=== PATIENT | female | born 1950 | race Caucasian/White ===

== ENCOUNTER 2017-03-23 12:33 | Inpatient (IN) | payer BC, OTHER ==
[~2017-03-23] VITALS: Ht 165.1 cm; Wt 38.0 kg
[~2017-03-23 12:33] MED LIST: ATEN-51 PO; CLON0.5T4 PO; DOXY-220 PO; FER325 PO; FLUT16SP17 NASAL; LANS30CA PO; LINA145C PO; LORA10TA3 PO; Levofloxacin PO; METH750T93 PO; OXYC-281 PO; PRED10TA PO; TRIM300C16 PO; [UNRECOGNIZED DRUG - CODE] TP
--- NOTE | 2017-03-23 14:44 | ERD ---
ER Documentation Chief Complaint Chief Complaint decreased appetite x 7 days HPI The patient is a 66-year-old female, presenting to the ER because of decreased appetite, vomiting, abdominal pain for the last 7 days. She denies fever, chills, neck pain, chest pain, dyspnea. The abdominal pain is diffuse, worse with diarrhea. She denies hematemesis, hematochezia, denies drinking, smokes regularly Medical history: Hypertension, anxiety, epilepsy, anemia, rheumatoid arthritis, allergic rhinitis, GERD, history of vocal cord paralysis Surgical history: Appendectomy, hysterectomy, neck surgery, cholecystectomy ROS All systems reviewed and are negative except as per history of present illness. Medications Home Meds Reported Medications Lidocaine (Lidocaine) 1 Each Adh..patch, 1 EACH TP TID 03/23/17 Methocarbamol* (Methocarbamol*) 750 Mg Tablet, 750 MG PO Q6H Y for MUSCLE SPASMS , TAB 03/23/17 Atenolol* (Atenolol*) 25 Mg Tablet, 25 MG PO BID, #60 TAB 03/23/17 Phenazopyridine Hcl* (Phenazopyridine Hcl*) 200 Mg Tablet, 200 MG PO BID, TAB 03/23/17 Clonazepam* (Clonazepam*) 1 Mg Tablet, 1 MG PO BID Y for ANXIETY, TAB 03/23/17 Discontinued Reported Medications Atenolol* (Atenolol*) 25 Mg Tablet, 25 MG PO BID, TAB 02/16/15 Oxycodone Hcl-Acetaminophen* (Percocet*) 5-325 Mg Tablet, 1 TAB PO DAILY Y for SEVERE PAIN LEVEL 7-10, TAB 02/16/15 Lidocaine Hcl (XOLIDO) 118 Ml Cream.ml., 1 APPLIC TP TID 02/16/15 Clonazepam* (Clonazepam*) 0.5 Mg Tablet, 0.5 MG PO Q8H Y for ANXIETY, TAB 02/16/15 Methocarbamol* (Robaxin*) 750 Mg Tablet, 1500 MG PO BID, TAB 02/16/15 Lansoprazole* (Lansoprazole*) 30 Mg Capsule.dr, 30 MG PO BID, CAP 02/16/15 Trimethobenzamide Hcl* (Tigan*) 300 Mg Capsule, 300 MG PO Q12 Y for NAUSEA, CAP 02/16/15 Discontinued Scripts Linaclotide (LINZESS) 145 Mcg Capsule, 145 MCG PO DAILY for 30 Days Prov:ZACKARY PRECIADO MD 02/23/15 Ferrous Sulfate* (Ferrous Sulfate*) 325 Mg Tabec, 325 MG PO DAILY for 30 Days, TAB Prov:ZACKARY PRECIADO MD 02/23/15 Prednisone (Prednisone) 10 Mg Tab, 10 MG PO DAILY, #5 TAB Prov:ZACKARY PRECIADO MD 02/23/15 Doxycycline Monohydrate* (Doxycycline Monohydrate*) 100 Mg Tablet, 100 MG PO DAILY for 5 Days, TAB Prov:ZACKARY PRECIADO MD 02/23/15 Loratadine* (Loratadine*) 10 Mg Tab, 10 MG PO DAILY, #30 Prov:ZACKARY PRECIADO MD 02/23/15 [Levofloxacin] 500 MG TAB No Conflict Check, 500 MG PO DAILY@06 for 5 Days, TAB Prov:ZACKARY PRECIADO MD 02/23/15 Fluticasone Propionate* (Fluticasone Propionate* Nasal) 1 [place], 1 SPRAY NASAL BID for 30 Days Prov:ZACKARY PRECIADO MD 02/23/15 Allergies Allergies: Coded Allergies: Sulfa (Sulfonamide Antibiotics) (Unverified Allergy, Mild, 03/23/17) RE-ENTERED UNCODED ALLERGY CODED; RASH PER ER NOTES cyclobenzaprine (Verified Allergy, Mild, 03/23/17) diazepam (Verified Allergy, Mild, 03/23/17) phenobarbital (Verified Allergy, Mild, 03/23/17) bethanechol (Verified Adverse Reaction, Intermediate, diarrhea, abd pain, alot of mucus , 03/23/17) Uncoded Allergies: [id number] (SULFA (SULFONAMIDE ANTIBIOTICS)) (Allergy, Mild, 09/17/10) PMhx/Soc History of Surgery: Yes (appendectomy,multiple neck sx,hysterectomy, cholecystectomy) Anesthesia Reaction: No Hx Neurological Disorder: Yes (seizures, last one in 1972) Hx Respiratory Disorders: No Hx Cardiac Disorders: No Hx Psychiatric Problems: No Hx Miscellaneous Medical Probl: Yes (chronic anemia,seizure, htn, gum abcessess , hep B/C?GERD,allergic rhinitis) Hx Alcohol Use: No Hx Substance Use: No Hx Tobacco Use: Yes Physical Exam Vitals Vital Signs Date Time Temp Pulse Resp B/P Pulse Ox O2 Delivery O2 Flow Rate FiO2 03/23/17 18:49 85 17 115/72 99 Nasal Cannula 2.0 03/23/17 16:36 87 18 129/98 97 Nasal Cannula 2.0 03/23/17 15:46 Nasal Cannula 2 03/23/17 15:01 101 19 130/99 96 Room Air 03/23/17 12:38 98.7 102 22 119/80 91 Physical Exam Const: No acute distress. dehydrated Head: Atraumatic. Eyes: Normal Conjunctiva. ENT: Normal External Ears, Nose and Mouth. Neck: Full range of motion. No meningismus. Resp: Clear to auscultation bilaterally. Cardio: Regular rate and rhythm. Abd: Soft, non distended, normal bowel sounds, moderate and diffuse abdominal tenderness, no rigidity, rebound, CVA tenderness Skin: No petechiae or rashes. Back: No midline or flank tenderness. Ext: No cyanosis, or edema. Neur: Awake and alert. No focal deficit Psych: Normal Mood and Affect. Result Diagram: 03/23/17 1540 03/23/17 1540 Results 24 hrs Laboratory Tests Test 03/23/17 15:40 03/23/17 19:06 White Blood Count 33.010^3/ul Red Blood Count 5.3210^6/ul Hemoglobin 14.2g/dl Hematocrit 42.9% Mean Corpuscular Volume 80.6fl Mean Corpuscular Hemoglobin 26.7pg Mean Corpuscular Hemoglobin Concent 33.1g/dl Red Cell Distribution Width 16.5% Platelet Count 33588^3/UL Mean Platelet Volume 11.2fl Neutrophils % % Segmented Neutrophils % (Manual) 86% Band Neutrophils % (Manual) 4% Lymphocytes % % Lymphocytes % (Manual) 1% Monocytes % % Monocytes % (Manual) 9% Eosinophils % % Basophils % % Nucleated Red Blood Cells % 0.0/100WBC Neutrophils # 10^3/ul Neutrophils # (Manual) 28.810^3/ul Band Neutrophils # 1.310^3/ul Absolute Lymphocytes (Manual) 0.310^3/ul Lymphocytes # 10^3/ul Monocytes # 10^3/ul Absolute Monocytes (Manual) 2.910^3/ul Eosinophils # 10^3/ul Basophils # 10^3/ul Nucleated Red Blood Cells # 10^3/ul Pathologist Review (Hematology) YES Platelet Morphology Comment @See below Anisocytosis 1+ Prothrombin Time 15.9Sec Prothrombin Time Ratio 1.2 INR International Normalized Ratio 1.25 Activated Partial Thromboplast Time 41.7Sec Sodium Level 130mmol/L Potassium Level 4.6mmol/L Chloride Level 93mmol/L Carbon Dioxide Level 24mmol/L Anion Gap 18 Blood Urea Nitrogen 69mg/dl Creatinine 2.42mg/dl Glucose Level 126mg/dl Lactic Acid Level 2.0mmol/L Calcium Level 8.4mg/dl Total Bilirubin 0.4mg/dl Direct Bilirubin 0.00mg/dl Indirect Bilirubin 0.4mg/dl Aspartate Amino Transf (AST/SGOT) 88IU/L Alanine Aminotransferase (ALT/SGPT) 71IU/L Alkaline Phosphatase 261IU/L Troponin I < 0.012ng/ml Total Protein 7.2g/dl Albumin 3.0g/dl Globulin 4.20g/dl Albumin/Globulin Ratio 0.71 Bedside Urine pH (LAB) 5.0 Bedside Urine Protein (LAB) 1+ Bedside Urine Glucose (UA) Negative Bedside Urine Ketones (LAB) Negative Bedside Urine Blood Negative Bedside Urine Nitrite (LAB) Negative Bedside Urine Leukocyte Esterase (L Negative Current Medications Medications (Trade) Dose Ordered Sig/Hair Route PRN Reason Start Time Stop Time Status Last Admin Dose Admin Sodium Chloride (NS) 1,200 ml @ 1,200 mls/hr BOLUS X1 ONCE IV 03/23/17 15:30 03/23/17 16:29 DC 03/23/17 15:42 Morphine Sulfate (morphine) 2 mg ONCE STAT IV 03/23/17 16:47 03/23/17 16:49 DC 03/23/17 16:58 Ondansetron HCl 4 mg 4 mg ONCE STAT IV 03/23/17 16:47 03/23/17 16:49 DC 03/23/17 16:58 Vancomycin HCl 250 ml @ 125 mls/hr ONCE IVPB 03/23/17 17:30 03/23/17 19:29 03/23/17 18:40 Piperacillin Sod/ Tazobactam Sod 50 ml @ 100 mls/hr ONCE ONCE IVPB 03/23/17 17:30 03/23/17 17:59 DC 03/23/17 18:18 Sodium Chloride (NS) 1,000 ml @ 100 mls/hr Q10H IV 03/23/17 18:58 IV Flush (NS 3 ml) 3 ml PER PROTOCOL IV 03/23/17 19:00 Lorazepam (Ativan) 0.5 mg Q8H PRN PO ANXIETY 03/23/17 19:00 Ondansetron HCl (Zofran Inj) 4 mg Q6H PRN IV NAUSEA AND/OR VOMITING 03/23/17 19:00 Acetaminophen (Tylenol Tab) 650 mg Q6H PRN PO PAIN LEVEL 1-3 OR FEVER 03/23/17 19:00 Acetaminophen/ Hydrocodone Bitart ([place] (5/325)) 1 tab Q6H PRN PO PAIN LEVEL 4-6 03/23/17 19:00 Docusate Sodium (Colace) 100 mg Q12H PRN PO CONSTIPATION 03/23/17 19:00 Magnesium Hydroxide (Milk Of Mag) 30 ml DAILY PRN PO CONSTIPATION 03/23/17 19:00 Pantoprazole (Protonix Tab) 40 mg DAILY@06 PO 03/24/17 06:00 Heparin Sodium (Porcine) (Heparin (5000 Units/0.5 ml)) 5,000 unit Q12 SC 03/23/17 21:00 Clonazepam (Klonopin) 1 mg BID PRN PO ANXIETY 03/23/17 19:00 Methocarbamol 750 mg 750 mg Q6H PRN PO MUSCLE SPASMS 03/23/17 19:00 Piperacillin Sod/ Tazobactam Sod (Zosyn 3.375gm/ 50 ml (Pmx)) 50 ml @ 100 mls/hr Q8 IV 03/23/17 22:00 Vancomycin HCl (Vanco Iv Per Pharmacy) VANCOMYCIN PER PHARMACY PER PROTOCOL XX 03/23/17 19:30 UNV Procedures/[place] [id number] Radiology Main Line: [phone] DIAGNOSTIC IMAGING REPORT Patient: ROSALIA MILLER : 1950 Age: 66 Sex: F MR #: [id number] DOS: 03/23/17 1506 Ordering MD: HELEN HADLEY MD Location: E/R Room/Bed: PROCEDURE: XR Chest. CLINICAL INDICATION: Shortness of breath TECHNIQUE: Single portable view of the chest was obtained COMPARISON: CR CHEST 02/17/2015 FINDINGS: The trachea is midline. The cardiac silhouette and pulmonary vascularity are within normal limits. There are bilateral chronic lung changes. There is bilateral perihilar scarring. The lungs are clear. The costophrenic angles are sharp. IMPRESSION: 1. Bilateral chronic lung changes and perihilar scarring. No evidence of acute cardiopulmonary disease. RPTAT: AARR Physician John Date Time Electronically viewed and signed by Antoni Hightower Physician on 03/23/2017 15:32 JL/ CC: HELEN HADLEY MD [place] [id number] Radiology Main Line: [phone] DIAGNOSTIC IMAGING REPORT Patient: ROSALIA MILLER : 1950 Age: 66 Sex: F MR #: [id number] DOS: 03/23/17 1647 Ordering MD: HELEN HADLEY MD Location: E/R Room/Bed: PROCEDURE: CT abdomen and pelvis without contrast. CLINICAL INDICATION: Abdominal pain. TECHNIQUE: CT of the abdomen and pelvis was performed without contrast. Coronal and sagittal reformatted images were obtained from the axial source images. Images were reviewed on a high-resolution PACS workstation. The total exam CTDI equals 4.61 mGy and the total exam DLP equals 182.83 mGy-cm. DICOM images are available. One or more of the following dose reduction techniques were used: - Automated exposure control. - Adjustment of the mA and/or kV according to patient size. - Use of iterative reconstruction technique. COMPARISON: Abdominal ultrasound dated 02/17/2015. FINDINGS: Visualized lower thorax: There is advanced centrilobular emphysema, patchy tree in bud opacity, and bronchial wall thickening at the visualized lung bases. There is also patchy consolidation and ground-glass opacity in the visualized inferior right middle lobe. The visualized heart is unremarkable. Hepatobiliary system and spleen: The liver is grossly unremarkable. There is no intra or extrahepatic biliary ductal dilatation. The gallbladder is not clearly identified, and may be surgically absent. The spleen is grossly unremarkable. The pancreas is grossly unremarkable. Adrenal glands and genitourinary system: The adrenal glands are grossly unremarkable. There is a 2.4 cm cyst at the upper pole of the right kidney. There is no nephrolithiasis or hydronephrosis. The urinary bladder is grossly unremarkable. The uterus is not identified, and may be surgically absent. Gastrointestinal system: There is a moderate volume of stool throughout the colon. There is no definitive evidence of bowel obstruction. The appendix is not identified. Peritoneum, vascular, and lymphatics: There is no free intraperitoneal air or free fluid. No definite mesenteric or retroperitoneal adenopathy, with evaluation being limited due to lack of intravenous contrast. There are atherosclerotic changes of the aorta, which is ectatic. Musculoskeletal system and soft tissues: There is severe lumbar dextroscoliosis with associated severe multilevel degenerative enthesopathy. There is lytic change of the right ilium adjacent to the SI joint with surrounding osseous fragments, suggesting the sequela of prior trauma. There are no concerning osseous lesions. There is body wall edema. IMPRESSION: 1. Advanced centrilobular emphysema with bronchitis and patchy bronchiolitis at both lung bases. Patchy consolidation and bronchiolitis in the visualized inferior right middle lobe. Dedicated chest CT can be performed for further evaluation. 2. Benign 2.4 cm right renal cyst. 3. Moderate volume of stool throughout the colon, suggestive of constipation. 4. Body wall edema. 5. Vascular calcifications consistent with atherosclerosis. RPTAT: HLBP .Vince Dalton MD, MD Date Time Electronically viewed and signed by .Vince Dalton MD, MD on 03/23/2017 18:07 .P/ CC: HELEN HADLEY MD EKG: Read by emergency physician Rate/Rhythm: Normal Sinus Rhythm 96 beats/min QRS, ST, T-waves: No ST elevation, no T inversion, ant Qs Impression: Abnormal EKG MEDICAL MAKING DECISION: The patient is a 66-year-old female, presenting with acute severe sepsis, acute pneumonia, mary, dehydration due to vomiting. She was treated with normosaline 30 mL/kg IV, Oropeza catheter, vancomycin IV, Zosyn IV acute severe sepsis, morphine 2 mg IV for pain, Zofran 4 with IV for nausea with good response The differential diagnoses considered include but are not limited to cholelithiasis, cholecystitis, cystitis, pancreatitis, hepatitis, gastritis, peptic ulcer disease, gastric ulcer, appendicitis, diverticulitis, cholangitis, choledocholithiasis, partial small bowel obstruction, copd, pna. Admit MDM: Patient's infectious symptoms have not stabilized and the patient is at risk of rapid decompensation. The patient will be admitted for careful hydration, antibiotic therapy, and infectious source control. Severe Sepsis criteria: Infectious source: pna End organ damage indicated by: Lactate > 2.0 mmol/L Sepsis Management: Time of recognition of severe sepsis/septic shock:5 pm Within 3 hours of recognition: Blood cultures x 2 before broad-spectrum antibiotics: Yes 30 ml/kg NS bolus completed Initial lactate 2 Repeat lactate pending Septic Shock Assessment: Any lactic acid > 4.0 no Persistent hypotension (SBP < 90 or 40 mmHg drop, MAP < 65) despite 30 mL/kg IV fluid bolusno Critical Care: Critical care time 35 minutes excluding billable procedures Emergent fluid management while maintaining close respiratory support. Provision of immediate and broad-spectrum antibiotic therapy. Simultaneous assessment for possible sources in order to direct targeted therapy. Consideration for invasive and chemical support to prevent cardiopulmonary collapse. Departure Diagnosis: Primary Impression: Severe sepsis Additional Impressions: Pneumonia Acute kidney injury Abnormal LFTs Condition: Stable Comments I discussed the findings with the patient. I discussed the patient with her physician at 6:35 pm who was made aware of the lab, the treatment, the patient condition. The patient is admitted to [facility] Disclaimer: Inadvertent spelling and grammatical errors are likely due to EHR/ dictation software use and do not reflect on the overall quality of patient care. Also, please note that the electronic time recorded on this note does not necessarily reflect the actual time of the patient encounter. HELEN HADLEY MD Mar 23, 2017 14:44
[2017-03-23] MEDS ORDERED: SOD CHLORIDE 0.9% 1,200 ML IV ONE (15:30)
--- NOTE | 2017-03-23 15:32 | RADRPT ---
PROCEDURE: XR Chest. CLINICAL INDICATION: Shortness of breath TECHNIQUE: Single portable view of the chest was obtained COMPARISON: CR CHEST 02/17/2015 FINDINGS: The trachea is midline. The cardiac silhouette and pulmonary vascularity are within normal limits. T here are bilateral chronic lung changes. There is bilateral perihilar scarring. The lungs are clear. The costophrenic angles are sharp. IMPRESSION: 1. Bilateral chronic lung changes and perihilar scarring. No evidence of acute cardiopulmonary disea se. RPTAT: AARR Physician John Date Time Electronically viewed and signed by Physician John on 03/23/2017 15:32 COREEN/
[2017-03-23 16:19] LABS: ABNORMAL IP MESSAGE 1; HEMATOCRIT 42.9 % (37.0-47.0); HEMOGLOBIN 14.2 g/dl (12.0-16.0); MEAN CORPUSCULAR HEMOGLOBIN 26.7 pg (29.0-33.0); MEAN CORPUSCULAR HGB CONC 33.1 g/dl (32.0-37.0); MEAN CORPUSCULAR VOLUME 80.6 fl (82.0-101.0); MEAN PLATELET VOLUME 11.2 fl (7.4-10.4); PLATELET COUNT 453 10^3/UL (140-415); RED BLOOD COUNT 5.32 10^6/ul (4.20-5.40); RED CELL DISTRIBUTION WIDTH 16.5 % (11.5-14.5)
[2017-03-23 16:22] LABS: POSITIVE DIFF @See below
[2017-03-23 16:41] LABS: ALANINE AMINOTRANSFERASE 71 IU/L (13-69); ALBUMIN/GLOBULIN RATIO 0.71; ALKALINE PHOSPHATASE 261 IU/L (42-121); ANION GAP 18 (8-16); ASPARTATE AMINO TRANSFERASE 88 IU/L (15-46); BILIRUBIN,INDIRECT 0.4 mg/dl (0-1.1); BILIRUBIN,TOTAL 0.4 mg/dl (0.2-1.3); BLOOD UREA NITROGEN 69 mg/dl (7-20); CALCIUM 8.4 mg/dl (8.4-10.2); CARBON DIOXIDE 24 mmol/L (21-31); CHLORIDE 93 mmol/L (97-110); CREATININE 2.42 mg/dl (0.44-1.00); GLUCOSE 126 mg/dl (70-220); POTASSIUM 4.6 mmol/L (3.5-5.1); SODIUM 130 mmol/L (135-144); TOTAL PROTEIN 7.2 g/dl (6.1-8.1)
[2017-03-23] MEDS ORDERED: morphine 2 MG INJ IV STA (16:47)
[2017-03-23] MEDS ORDERED: ONDANSETRON 4 MG INJ IV STA (16:47)
[2017-03-23 16:49] LABS: INR 1.25; PROTIME 15.9 Sec (11.9-14.9); PT RATIO 1.2
[2017-03-23 16:50] LABS: PARTIAL THROMBOPLASTIN TIME 41.7 Sec (25.0-35.0)
[2017-03-23 16:59] LABS: TROPONIN-I < 0.012 ng/ml (0.00-0.12)
[2017-03-23 17:06] LABS: ANISOCYTOSIS 1+ (0-0); MONOCYTES % (M) 9 % (0-11)
[2017-03-23] MEDS ORDERED: CLON1TAB3 PO (17:11)
[2017-03-23] MEDS ORDERED: ATEN-51 PO (17:12)
[2017-03-23] MEDS ORDERED: PHEN-616 PO (17:12)
[2017-03-23] MEDS ORDERED: METH750T2 PO (17:13)
[2017-03-23] MEDS ORDERED: LIDO700A45 TP (17:15)
[2017-03-23 17:25] LABS: PATH REVIEW? YES
[2017-03-23] MEDS ORDERED: VANCOMYCIN 1 GM (PMX) 250 ML IVPB SCH (17:30)
[2017-03-23] MEDS ORDERED: PIPER-TAZO 2.25 GM (PMX) 50 ML IVPB ONE (17:30)
--- NOTE | 2017-03-23 18:07 | RADRPT ---
PROCEDURE: CT abdomen and pelvis without contrast. CLINICAL INDICATION: Abdominal pain. TECHNIQUE: CT of the abdomen and pelvis was performed without contrast. Coronal and sagittal reform atted images were obtained from the axial source images. Images were reviewed on a high-resolution [employer] workstation. The total exam CTDI equals 4.61 mGy and the total exam DLP equals 182.83 mGy-cm. DI COM images are available. One or more of the following dose reduction techniques were used: - Automated exposure control. - Adjustment of the mA and/or kV according to patient size. - Use of iterative reconstruction technique. COMPARISON: Abdominal ultrasound dated 02/17/2015. FINDINGS: Visualized lower thorax: There is advanced centrilobular emphysema, patchy tree in bud opacity, and bronchial wall thickening at the visualized lung bases. There is also patchy consolidation and grou nd-glass opacity in the visualized inferior right middle lobe. The visualized heart is unremarkable. Hepatobiliary system and spleen: The liver is grossly unremarkable. There is no intra or extrahepat ic biliary ductal dilatation. The gallbladder is not clearly identified, and may be surgically absen t. The spleen is grossly unremarkable. The pancreas is grossly unremarkable. Adrenal glands and genitourinary system: The adrenal glands are grossly unremarkable. There is a 2. 4 cm cyst at the upper pole of the right kidney. There is no nephrolithiasis or hydronephrosis. The urinary bladder is grossly unremarkable. The uterus is not identified, and may be surgically absent. Gastrointestinal system: There is a moderate volume of stool throughout the colon. There is no defi nitive evidence of bowel obstruction. The appendix is not identified. Peritoneum, vascular, and lymphatics: There is no free intraperitoneal air or free fluid. No defini te mesenteric or retroperitoneal adenopathy, with evaluation being limited due to lack of intravenou s contrast. There are atherosclerotic changes of the aorta, which is ectatic. Musculoskeletal system and soft tissues: There is severe lumbar dextroscoliosis with associated sev ere multilevel degenerative enthesopathy. There is lytic change of the right ilium adjacent to the S I joint with surrounding osseous fragments, suggesting the sequela of prior trauma. There are no con cerning osseous lesions. There is body wall edema. IMPRESSION: 1. Advanced centrilobular emphysema with bronchitis and patchy bronchiolitis at both lung bases. Pa tchy consolidation and bronchiolitis in the visualized inferior right middle lobe. Dedicated chest C T can be performed for further evaluation. 2. Benign 2.4 cm right renal cyst. 3. Moderate volume of stool throughout the colon, suggestive of constipation. 4. Body wall edema. 5. Vascular calcifications consistent with atherosclerosis. RPTAT: HLBP .Vince Dalton MD, MD Date Time Electronically viewed and signed by .Vince Dalton MD, on 03/23/2017 18:07 .P/
[2017-03-23] MEDS ORDERED: clonAZEPAM 0.5 MG TAB PO PRN (19:00)
[2017-03-23] MEDS ORDERED: ACETAMINOPHEN 325 MG TAB PO PRN (19:00)
[2017-03-23] MEDS ORDERED: NACL 0.9% 3 ML SYG IV SCH (19:00)
[2017-03-23] MEDS ORDERED: ONDANSETRON 4 MG INJ IV PRN (19:00)
[2017-03-23] MEDS ORDERED: DOCUSATE SODIUM 100 MG CAP PO PRN (19:00)
[2017-03-23] MEDS ORDERED: MAGNESIUM HYDROXIDE 30ML CUP PO PRN (19:00)
[2017-03-23] MEDS ORDERED: METHOCARBAMOL 750 MG TAB PO PRN (19:00)
[2017-03-23 19:07] LABS: URINE BLOOD (Dip) POC Negative (NEGATIVE)
[2017-03-23] MEDS ORDERED: VANCOMYCIN IV PER PHARMACY XX SCH (19:30)
[2017-03-23 19:34] LABS: ADD UMIC NO; UR ASCORBIC ACID NEGATIVE (NEGATIVE); UR BILIRUBIN (Dip) NEGATIVE (NEGATIVE); UR BLOOD (Dip) NEGATIVE (NEGATIVE); UR CLARITY SLIGHTLY CLOUDY (CLEAR); UR COLOR AMBER (YELLOW); UR GLUCOSE (Dip) NEGATIVE (NEGATIVE); UR KETONES (Dip) NEGATIVE (NEGATIVE); UR LEUKOCYTE ESTERASE (Dip) NEGATIVE Leu/ul (NEGATIVE); UR NITRITE (Dip) NEGATIVE (NEGATIVE); UR RBC 2 /HPF (0-5); UR SPECIFIC GRAVITY (Dip) 1.016 (1.003-1.030); UR TOTAL PROTEIN (Dip) NEGATIVE (NEGATIVE); UR UROBILINOGEN (Dip) 2+ mg/dL (NEGATIVE)
[2017-03-23 21:30] VITALS: BP 116/81; RESP 18
[2017-03-23 22:01] VITALS: PULSE 85
[2017-03-23 22:47] VITALS: Ht 165.1 cm; Wt 38.0 kg
[2017-03-23] MEDS: PIPER-TAZO 3.375 GM IV (PMX) 50 ML IV SCH (23:58)
[2017-03-24] VITALS (11 sets, daily range): BP systolic 119–151; BP diastolic 70–87; PULSE 62–84; RESP 16–19
[2017-03-24] MEDS: SOD CHLORIDE 0.9% 1,000 ML IV SCH ×3 (00:01→14:18)
[2017-03-24] MEDS: HYDROCODONE/APAP (5/325) TAB PO PRN ×2 (04:17→04:27)
[2017-03-24] MEDS: PIPER-TAZO 3.375 GM IV (PMX) 50 ML IV SCH (05:55)
[2017-03-24] MEDS: PANTOPRAZOLE (EC) 40 MG TAB PO SCH (05:56)
[2017-03-24] MEDS: HEPARIN 5,000 UNIT/0.5 ML VIAL SC SCH ×3 (08:19→20:55)
[2017-03-24 09:33] LABS: ABNORMAL IP MESSAGE 1; BASOPHIL # 0.1 10^3/ul (0.0-0.1); BASOPHILS % 0.2 % (0.0-2.0); HEMATOCRIT 40.3 % (37.0-47.0); HEMOGLOBIN 12.5 g/dl (12.0-16.0); LYMPHOCYTES # 0.9 10^3/ul (0.8-2.9); LYMPHOCYTES % 3.3 % (15.0-51.0); MEAN CORPUSCULAR HEMOGLOBIN 26.2 pg (29.0-33.0); MEAN CORPUSCULAR VOLUME 84.3 fl (82.0-101.0); MEAN PLATELET VOLUME 11.4 fl (7.4-10.4); MONOCYTE # 1.2 10^3/ul (0.3-0.9); MONOCYTES % 4.6 % (0.0-11.0); NEUTROPHIL # 23.4 10^3/ul (1.6-7.5); NEUTROPHILS % 91.5 % (39.0-77.0); PLATELET COUNT 377 10^3/UL (140-415); RED BLOOD COUNT 4.78 10^6/ul (4.20-5.40); RED CELL DISTRIBUTION WIDTH 16.7 % (11.5-14.5); WHITE BLOOD COUNT 25.6 10^3/ul (4.8-10.8)
[2017-03-24 09:37] LABS: POSITIVE DIFF @See below
[2017-03-24 09:57] LABS: ALANINE AMINOTRANSFERASE 64 IU/L (13-69); ALBUMIN 2.7 g/dl (3.3-4.9); ALBUMIN/GLOBULIN RATIO 0.72; ALKALINE PHOSPHATASE 255 IU/L (42-121); ANION GAP 16 (8-16); ASPARTATE AMINO TRANSFERASE 79 IU/L (15-46); BILIRUBIN,INDIRECT 0.4 mg/dl (0-1.1); BILIRUBIN,TOTAL 0.4 mg/dl (0.2-1.3); BLOOD UREA NITROGEN 58 mg/dl (7-20); CALCIUM 8.3 mg/dl (8.4-10.2); CARBON DIOXIDE 28 mmol/L (21-31); CHLORIDE 98 mmol/L (97-110); CREATININE 2.01 mg/dl (0.44-1.00); GLUCOSE 79 mg/dl (70-220); HDL CHOLESTEROL 12 mg/dl (35-98); MAGNESIUM 2.2 mg/dl (1.7-2.5); POTASSIUM 4.7 mmol/L (3.5-5.1); SODIUM 137 mmol/L (135-144); TOTAL PROTEIN 6.4 g/dl (6.1-8.1); TRIGLYCERIDES 125 mg/dl (0-149)
[2017-03-24 10:08] LABS: CHOLESTEROL < 50 mg/dl (100-200)
[2017-03-24] MEDS: PIPER-TAZO 2.25 GM (PMX) 50 ML IVPB SCH ×3 (12:20→23:54)
--- NOTE | 2017-03-24 18:33 | RADRPT ---
PROCEDURE: US Lower extremity arterial. CLINICAL INDICATION: Bilateral lower extremity cyanosis. Claudication. TECHNIQUE: Multiple sonographic images of the bilateral lower extremity arteries was obtained utili zing grayscale, color-flow, and doppler imaging. The images were reviewed on a PACS workstation. COMPARISON: None. FINDINGS: RIGHT LEG: Common femoral artery: 136.8 cm/s; biphasic waveforms Proximal superficial femoral artery: 159.5 cm/s; biphasic waveforms Mid superficial femoral artery: 142.6 cm/s; monophasic waveforms Distal superficial femoral artery: 119.4 cm/s; monophasic waveforms Popliteal artery: 94.3 cm/s; monophasic waveforms Posterior tibial artery: 78.4 cm/s; monophasic waveforms Dorsalis pedis artery: 81.7 cm/s; monophasic waveforms LEFT LEG: Common femoral artery: 89.9 cm/s; triphasic waveforms Proximal superficial femoral artery: 169.2 cm/s; biphasic waveforms Mid superficial femoral artery: 117.3 cm/s; monophasic waveforms Distal superficial femoral artery: 110.9 cm/s; monophasic waveforms Popliteal artery: 113.6 cm/s; monophasic waveforms Posterior tibial artery: 81.7 cm/s; monophasic waveforms Dorsalis pedis artery: 65.5 cm/s; monophasic waveforms There is dense atherosclerotic plaque in the bilateral common femoral arteries and scattered atheros clerotic disease elsewhere throughout the lower extremities. There is a 4 x 1 x 2.2 cm cyst in the right popliteal fossa. IMPRESSION: 1. Abnormal examination demonstrating dampened waveforms in both lower extremities, consistent with inflow disease. CT angiography with lower extremity runoff can be performed for further evaluation. 2. Calcified atherosclerotic plaque with associated luminal narrowing in the right common femoral a rtery of approximately 57%. 3. No evidence of hemodynamically significant stenosis or occlusion. LEMUEL Value Interpretation Recommendation >1.4 Calcification/Vessel Hardening Refer to a Vascular Specialist 1.0-1.4 Normal None 0.9-1.0 Acceptable None 0.8-0.9 Some Arterial Disease Treat Risk Factors 0.5-0.8 Moderate Arterial Disease Refer to a Vascular Specialist Stenosis category Peak systolic velocity (cm/s) Velocity ratio Distal artery spectral waveform <20% <150 <1.5 Triphasic, normal PSV 20% to 49% 150-200 1.5-2.0 Triphasic, normal PSV 50% to 75% 200-300 2.0-4.0 Monophasic, reduced PSV >75% >300, EDV >40 >4.0 Damped monophasic, reduced PSV Occlusion No flow Damped monophasic, reduced PSV Interpretation of arterial duplex testing of lower-extremity arteries and interventions. Sem[employer]ars in Vascular Surgery. 2013-Dec;26(2-3):95-104. RPTAT: HLBP .Vince Dalton MD, MD Date Time Electronically viewed and signed by .Vince Dalton MD, on 03/24/2017 18:33 .P/
[2017-03-24] MEDS ORDERED: clonAZEPAM 0.5 MG TAB PO PRN (22:00)
--- NOTE | 2017-03-24 22:22 | HP ---
DATE OF ADMISSION: 03/23/2017 REASON FOR ADMISSION: Pneumonia, sepsis, acute renal failure, severe weight loss. HISTORY OF PRESENT ILLNESS: The patient is an unfortunate 66-year-old female with history of anemia, chronic pain, seizure disorder, hypertension, recurrent UTIs, gastroesophageal reflux di sease, allergic rhinitis, C-spine and lumbar spine disease, psychiatric disorder, COPD/emphysema, wh o resides in [place] by herself. The patient states that she has been losing weight for the pa st month or so. In the past 8 days, she has been having increased cough and not feeling well. She was supposed to see her doctor, but patient deferred it. Now presents to the emergency department b ecause of the decreased appetite, vomiting and abdominal pain. In the ER, she underwent extensive w orkup, was found to be septic with a white count of 33,000. BUN and creatinine elevated to 69/2.42, elevated LFTs and a chest x-ray revealed bilateral chronic lung changes and perihilar scarring, no evidence of acute cardiopulmonary disease, but the CAT scan showed advanced centrilobular emphysema with bronchitis and patchy ____ of both lung bases, patchy consolidation and ____ in the visualized inferior right middle lobe. Dedicated CT scan can be performed for further evaluation. There is a benign 2.4 cm right renal cyst, moderate volume of stool throughout the colon, suggestive of constip ation, body wall edema and vascular calcification consistent with atherosclerosis. The patient was started on broad-spectrum antibiotics for presumed pneumonia or bronchitis, and she was hydrated wit h IV fluids and admitted for further care. Upon evaluation, the patient is not eating much, she is very weak, she has difficulty walking now, more in the last few days. She lost a significant amount of weight as BMI was documented as 13.9 with a weight was 38 kilograms. The patient is basically a ll bones, very fragile with severe kyphosis and scoliosis. The patient is admitted for further care . She did report of abdominal pain and problems eating. She attributes it to not taking Prevacid t wice a day. The patient is admitted for further care. PAST MEDICAL HISTORY: Includes chronic anemia, chronic pain syndrome, seizure disorder, hypertensio n, history of gum abscesses, recurrent UTI, questionable viral hepatitis, gastroesophageal reflux di sease, allergic rhinitis, C-spine and L-spine spinal disk disease, history of vocal cord paralysis. SURGICAL HISTORY: Includes appendectomy, multiple neck surgeries, hysterectomy, cholecystectomy. ALLERGIES: SULFA, PHENOBARBITAL, DIAZEPAM, FLEXERIL. SOCIAL HISTORY: The patient was born in [place], moved to [place] in 1975. She is single. She has no kids. She lives by herself at [place]. Overall, she appears to be very disabled and we ak. She denies tobacco. She does smoke a pack a day. She said she has been cutting down. She den ies any illicit drugs. FAMILY HISTORY: Unknown. GI workup, she did have a colonoscopy on 02/22/2015, which showed ulcer in the rectum secondary to f ecal impaction, negative all the way to the cecum. There were hemorrhoids. At that time, she had e levated CEA at 9.4, that was on 02/17/2015. MEDICATIONS: The patient's medications include: 1. Methocarbamol 750 q.6 p.r.n. 2. Atenolol 25 b.i.d. 3. Clonazepam 1 mg b.i.d. p.r.n. 4. Lidocaine patch, it says t.i.d. 5. Phenazopyridine 200 b.i.d. PHYSICAL EXAMINATION: VITAL SIGNS: Temperature 97.2, pulse 75, respirations 19, blood pressure 126/70, saturation 97% on 4 liters. GENERAL: The patient is very weak looking, temporal wasting, pale. CARDIOVASCULAR: Positive S1 and S2, regular rate and rhythm. LUNGS: Decreased bilaterally. The patient with kyphosis, scoliosis, severe. ABDOMEN: Soft. She had an abdominal hernia reducible. Very thin, all bones. EXTREMITIES: There is cyanosis of the bilateral lower extremities, quite significant, with left low er extremity more cold to touch than the right, at the foot. She has onychomycosis to all the toes, and that is suggestive of severe peripheral vascular disease. The patient has deformities of the h ands, suggestive of rheumatoid arthritis as patient was diagnosed with rheumatoid arthritis. The patient is admitted for further care. LABORATORY DATA: White count is 25.6, better, hemoglobin 12.5, hematocrit 40, platelets 277, neutro phils ____, lymphocytes 3%. Chemistry: Sodium 137, potassium 4.7, chloride 98, bicarbonate 28, BUN is 58, creatinine 2.01 and a glucose of 79. Hemoglobin A1c is 5.0. Lactic acid is high at 2.2, T 79, ALT 64, alkaline phosphatase 255, high. Albumin 2.7. Cholesterol less than 50, HDL is 12, ve ry low. TSH is 0.67. The patient ____ cholesterol is all low because likely some severe malnutriti on. Urinalysis, basically nitrites and leukocyte esterase negative. The patient's albumin was 2.7. INR 1.25. Blood cultures so far negative and urine culture is preliminary pending. ASSESSMENT AND PLAN: This is a very unfortunate, very sick 66-year-old female with histor y of emphysema, nicotine dependency, chronic pain syndrome, hypertension, psychiatric disorder, anem ia, peripheral vascular disease, who presents with severe weight loss and was found to be septic, anh hensley from pneumonia. 1. Respiratory: The patient with pneumonia/bronchitis, says she has severe emphysema on CT scan. O2 support and breathing treatment will be provided as needed. We will continue broad-spectrum anti biotics with vancomycin and Zosyn. White count is improving. Follow up lactic acid level. Continu e supportive care. 2. Cardiovascular: EKG shows normal sinus rhythm, anterior infarct, age undetermined. Blood press ure otherwise under control. Vitals are stable. Observe. The patient will be placed on heparin fo r DVT prophylaxis. The patient does have peripheral vascular disease and cold left foot. We will o btain an arterial ultrasound and consult vascular surgery for further recommendations. 3. Infectious disease: The patient is septic with leukocytosis, lactic acidosis. The patient is o n broad-spectrum antibiotics. We will follow up all cultures. 4. Severe malnutrition. I am definitely concerned about malignancy. We will consult GI as the pat ient's symptoms include epigastric pain and some dysphagia. The patient likely will need an EGD. N oted CAT scan results. Follow up cancer markers including CEA. 5. We will consult the dietitian for assistance. We will try to maximize the patient's nutrition s tatus with Ensure. May consider Megace. 6. Rheumatoid arthritis, spinal disk disease, supportive care and pain control as needed. 7. The patient will be placed on PPI for GI prophylaxis, and heparin for DVT prophylaxis. 8. Acute renal failure, likely from decreased p.o. intake with prerenal azotemia. The patient will be hydrated with IV fluids. Monitor for fluid overload state. Check uric acid levels. 9. Elevated alkaline phosphatase. Obtain GGT. 10. Psychiatric disorder. The patient is being supported with clonazepam. Observe. 11. History of rheumatoid arthritis. 12. Physical therapy as tolerated. Overall long-term prognosis is not very good, basically looking at the whole picture and the patient 's significant weight loss, which is all very concerning. We will follow. Dictated By: ZACKARY ANGELA/YOJANA Conf#: [id number] DID#: [id number]
[2017-03-25] VITALS (12 sets, daily range): BP systolic 112–148; BP diastolic 57–81; PULSE 69–82; RESP 16–19
[2017-03-25] MEDS: HYDROmorphONE 2 MG TAB PO PRN (00:16)
[2017-03-25] MEDS: morphine (ER) 15 MG TAB PO SCH ×3 (00:18→20:48)
[2017-03-25] MEDS: SOD CHLORIDE 0.9% 1,000 ML IV SCH ×2 (02:13→11:03)
[2017-03-25] MEDS: PANTOPRAZOLE (EC) 40 MG TAB PO SCH (05:29)
[2017-03-25] MEDS: PIPER-TAZO 2.25 GM (PMX) 50 ML IVPB SCH ×4 (05:30→23:54)
[2017-03-25] MEDS: LORATADINE 10 MG TAB PO SCH (08:26)
[2017-03-25] MEDS: FLUTICASONE 0.05% 16 GM NAS SPRAY NASAL SCH (08:26)
[2017-03-25] MEDS: HEPARIN 5,000 UNIT/0.5 ML VIAL SC SCH ×2 (08:28→20:46)
[2017-03-25] MEDS ORDERED: METHOCARBAMOL 750 MG TAB PO PRN (09:00)
--- NOTE | 2017-03-25 09:18 | CONS ---
Date/Time of Note Date/Time of Note DATE: 03/25/17 TIME: 09:16 Assessment/Plan Assessment/Plan Additional Assessment/Plan 1. Severe constipation 2. Pneumonia bronchitis and bronchiolitis 3. Leukocytosis secondary to pneumonia 4. Cachexia 5. Weight loss 6. Abdominal pain nausea vomiting 7. Chronic neck pain 8. History of GERD Plan Continue antibiotics Continue PPI Add Megace to stimulate the appetite Dulcolax suppository Monitor WBC count and weight closely. We will do EGD once he is more stable CEA and CA 19-9 level Consultation Date/Type/Reason Admit Date/Time Mar 23, 2017 at 18:39 Initial Consult Date 24 HR Interval Summary Free Text/Dictation Complains of constipation Exam/Review of Systems Vital Signs Vitals Vital Signs Date Time Temp Pulse Resp B/P Pulse Ox O2 Delivery O2 Flow Rate FiO2 03/25/17 08:19 69 03/25/17 08:00 98.0 16 148/81 94 03/25/17 04:39 2.0 03/24/17 21:00 Nasal Cannula Intake and Output 03/24/17 03/24/17 03/25/17 15:00 23:00 07:00 Intake Total 50 ml 1150 ml 1400 ml Output Total 1200 ml Balance 50 ml -50 ml 1400 ml Exam Constitutional: alert, oriented, well developed Psych: nl mood/affect, no complaints Head: atraumatic, normocephalic Eyes: EOMI, PERRL, nl conjunctiva, nl lids, nl sclera ENMT: nl external ears & nose, nl lips & teeth, nl nasal mucosa & septum Neck: non-tender, supple Respiratory: clear to auscultation, normal air movement Cardiovascular: nl pulses, regular rate and rhythm Gastrointestinal: nl liver, spleen, non-tender, soft Musculoskeletal: nl extremities to inspection, nl gait and stance Extremities: normal pulses Neurological: 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 II-XII intact, nl mental status, nl speech, nl strength Skin: nl turgor, No rash or lesions Lymph: nl lymph nodes Results Result Diagram: 03/24/1782803/24/17828 Medications Medications Current Medications Sodium Chloride (NS) 1,000 ml @ 100 mls/hr Q10H IV Last administered on t 02:13; Admin Dose 100 MLS/HR; Start 03/23/17 at 18:58 Lorazepam (Ativan) 0.5 mg Q8H PRN PO ANXIETY; Start 03/23/17 at 19:00 Ondansetron HCl (Zofran Inj) 4 mg Q6H PRN IV NAUSEA AND/OR VOMITING; Start 03/28 at 19:00 Acetaminophen (Tylenol Tab) 650 mg Q6H PRN PO PAIN LEVEL 1-3 OR FEVER; Start 03/23/17 at 19:00 Acetaminophen/ Hydrocodone Bitart ([place] (5/325)) 1 tab Q6H PRN PO PAIN LEVEL 4 -6 Last administered on 03/24/17 04:17; Admin Dose 1 TAB; Start 03/23/17 at 19:00 Docusate Sodium (Colace) 100 mg Q12H PRN PO CONSTIPATION Last administered on 03/25/17 08:42; Admin Dose 100 MG; Start 03/23/17 at 19:00 Magnesium Hydroxide (Milk Of Mag) 30 ml DAILY PRN PO CONSTIPATION Last administered on 03/25/17 08:42; Admin Dose 30 ML; Start 03/23/17 at 19:00 Pantoprazole (Protonix Tab) 40 mg DAILY@06 PO Last administered on 03/25/17 05:29; Admin Dose 40 MG; Start 03/24/17 at 06:00 Heparin Sodium (Porcine) (Heparin (5000 Units/0.5 ml)) 5,000 unit Q12 SC Last administered on 03/25/17 08:28; Admin Dose 5,000 UNIT; Start 03/23/17 at 21: 00 Influenza Virus Vaccine 0.5 ml 0.5 ml ONCE ONCE IM* ; Start 03/26/17 at 09:00; Stop 03/26/17 at 09:01 Piperacillin Sod/ Tazobactam Sod 50 ml @ 100 mls/hr Q6 IVPB Last administered on 03/25/17 05:30; Admin Dose 100 MLS/HR; Start 03/24/17 at 12:00 Vancomycin HCl (Vancocin) 100 ml @ 100 mls/hr Q48H IVPB ; Start 03/25/17 at 18 :00 Clonazepam (Klonopin) 1 mg TID PRN PO ANXIETY Last administered on 03/25/17 05:29; Admin Dose 1 MG; Start 03/24/17 at 22:00 Methocarbamol (Robaxin) 750 mg TID PRN PO MUSCLE SPASMS Last administered on 01:58; Admin Dose 750 MG; Start 03/25/17 at 09:00 Hydromorphone HCl (Dilaudid) 2 mg Q4H PRN PO PAIN Last administered on 00:16; Admin Dose 2 MG; Start 03/24/17 at 23:00 Morphine Sulfate (Ms Contin (Er)) 15 mg BID PO Last administered on 03/25/17 08:26; Admin Dose 15 MG; Start 03/24/17 at 22:39 Loratadine (Claritin) 10 mg DAILY PO Last administered on 03/25/17 08:26; Admin Dose 10 MG; Start 03/25/17 at 09:00 Fluticasone Propionate (Flonase 0.05% Nasal) 1 spray DAILY NASAL Last administered on 03/25/17 08:26; Admin Dose 1 SPRAY; Start 03/25/17 at 09:00 KAILEY SETHI MD Mar 25, 2017 09:18
[2017-03-25] MEDS ORDERED: BISACODYL 10 MG SUPP PR STA (09:19)
[2017-03-25 09:28] LABS: CREATININE 1.18 mg/dl (0.44-1.00)
[2017-03-25] MEDS: VANCOMYCIN 500MG/NS (PMX) 100 ML IVPB SCH (11:05)
[2017-03-25 11:45] LABS: BASOPHILS % 0.2 % (0.0-2.0); EOSINOPHILS % 0.1 % (0.0-7.0); HEMATOCRIT 32.8 % (37.0-47.0); HEMOGLOBIN 10.1 g/dl (12.0-16.0); LYMPHOCYTES # 0.7 10^3/ul (0.8-2.9); LYMPHOCYTES % 3.7 % (15.0-51.0); MEAN CORPUSCULAR HEMOGLOBIN 26.2 pg (29.0-33.0); MEAN CORPUSCULAR HGB CONC 30.8 g/dl (32.0-37.0); MEAN PLATELET VOLUME 11.3 fl (7.4-10.4); MONOCYTE # 1.4 10^3/ul (0.3-0.9); MONOCYTES % 7.8 % (0.0-11.0); NEUTROPHIL # 16.1 10^3/ul (1.6-7.5); NEUTROPHILS % 87.7 % (39.0-77.0); PLATELET COUNT 333 10^3/UL (140-415); RED BLOOD COUNT 3.86 10^6/ul (4.20-5.40); RED CELL DISTRIBUTION WIDTH 16.8 % (11.5-14.5); WHITE BLOOD COUNT 18.4 10^3/ul (4.8-10.8)
[2017-03-25 12:11] LABS: CALCIUM 7.7 mg/dl (8.4-10.2); CREATININE 1.14 mg/dl (0.44-1.00); POTASSIUM 3.4 mmol/L (3.5-5.1)
[2017-03-25 12:55] LABS: CARCINOEMBRYONIC ANTIGEN 36.7 ng/ml (0.0-5.0)
[2017-03-25 12:55] LABS: CARCINOEMBRYONIC ANTIGEN 75.6 ng/ml (0.0-5.0)
[2017-03-25 12:59] LABS: CANCER ANTIGEN 19-9 12.7 U/ml (0.0-37.0)
[2017-03-25] MEDS ORDERED: POTASSIUM CHLORIDE (SR) 20 MEQ TAB PO STA (14:15)
--- NOTE | 2017-03-25 16:55 | PN ---
DATE: 03/25/2017 SUBJECTIVE: Patient seen, and I spoke as well with his neighbor/friend who is with her all the time . Again, I am very concerned about the patient. The patient is very cachectic and weak. She weigh s 38 kilograms and all bones. Also, CEA level came back as remarkably high at 36.7 and I am concern ed about possible malignancy. Dr. James is following. PHYSICAL EXAMINATION: VITAL SIGNS: Temperature is 98.3, pulse 80, respirations 16, blood pressure 112/59, saturation 97% on 2 liters. GENERAL: The patient is cachectic, frail, pale. HEENT: Decreased dentition. CARDIOVASCULAR: S1, S2. LUNGS: Decreased bilaterally. ABDOMEN: Soft, nontender. EXTREMITIES: No clubbing, cyanosis, or edema. She has significant cyanosis of the feet and distal legs. MEDICATIONS: 1. Megace 800 daily. 2. Vancomycin IV dose per pharmacy. 3. Robaxin 750 t.i.d. p.r.n. 4. Flonase 1 spray daily. 5. Dilaudid 2 mg p.o. q.4h p.r.n. 6. MS-Contin ER 15 b.i.d. 7. Klonopin 1 mg t.i.d. p.r.n. 8. DuoNeb p.r.n. 9. Zosyn 3.375 IV q.6 h. 10. Protonix 40 mg daily. 11. Heparin 5000 subcu q.12 12. Ativan p.r.n. 13. Zofran p.r.n. 14. Tylenol p.r.n. 15. [place] p.r.n. 16. Colace p.r.n. 17. Milk of magnesia p.r.n. 18. Normal saline at 100 mL an hour. LABORATORY DATA: Urine culture did show strep beta hemolytic group F, greater than 100,000. IMAGING: Arterial ultrasound shows abnormal examination, demonstrating dampened waveform in both lo wer extremities consistent with inflow disease. CT angiography with lower extremity runoff can be p erformed for further evaluation. There is a calcified atherosclerotic plaque with associated lumina l narrowing in the right common femoral artery of approximately 57%. No evidence of hemodynamically significant stenosis or occlusion. ASSESSMENT AND PLAN: This is a very unfortunate 66-year-old female with history of severe emphysema, nicotine dependency, chronic pain syndrome, hypertension, psychiatric disorder, anemia, peripheral vascular disease, presented with severe weight loss, was found to be septic, urinary trac t infection, possible pneumonia. 1. Respiratory: Continue treatment for pneumonia or bronchitis. The patient has severe emphysema, breathing treatment and O2 support is being provided. Remains on Zosyn and vancomycin. White coun t is improving. 2. Cardiovascular. Vitals remain stable. Continue heparin for deep venous thrombosis prophylaxis. The patient with peripheral vascular disease, not a candidate for any intervention secondary to un derlying other medical issues and weight loss. 3. Infectious disease. The patient with urinary tract infection and possible bronchitis. Continue above antibiotics. Positive strep in the urine. Continue Zosyn. 4. Severe malnutrition, now on Megace. 5. Possible dysphagia, possibly related to possible esophageal pathology versus gastrointestinal ma lignancy versus other. CEA is very high. Further recommendations per Dr. James, but overall the p atient's prognosis is not very good. 6. Acute renal failure, resolving with IV hydration. 7. Elevated alkaline phosphatase. 8. Psychiatric disorder. Continue clonazepam routine per patient request. 9. Rheumatoid arthritis. Continue supportive care. Physical therapy as tolerated. 10. Overall try to keep the patient comfortable as patient is on multiple pain medications. Sterling sewell follow. Dictated By: ZACKARY ANGELA/YOJANA Conf#: [id number] DID#: [id number]
--- NOTE | 2017-03-25 16:55 | CONS ---
DATE OF ADMISSION: 03/23/2017 DATE OF CONSULTATION: 03/24/2017 REASON FOR CONSULTATION: Abdominal pain, weight loss, nausea, vomiting. HISTORY OF PRESENT ILLNESS: The patient is a 66-year-old female with chronic neck pain, GERD, has b een steadily losing weight. The patient is also a heavy smoker. She came to the emergency room com plaining of cough and profound weakness. In the ER, the patient was evaluated, had a leukocytosis. CAT scan of the abdomen and pelvis done and it showed bronchitis, bronchiolitis, so patient was adm itted for further management. As per the patient, since she did not get approval of Prevacid by the insurance company, her appetite has gone down and has been losing weight. No GI bleeding. 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 Patient never came to the office for followup. PAST MEDICAL HISTORY: Chronic anemia, chronic pain syndrome, seizure disorder, hypertension, gum ab scess, UTI, GERD, arthritis of the C-spine and vocal cord paralysis. PAST SURGICAL HISTORY: Appendectomy, multiple neck surgeries, hysterectomy and cholecystectomy. ALLERGIES: SULFA, PHENOBARBITAL, DIAZEPAM AND FLEXERIL. SOCIAL HISTORY: The patient denies smoking. No alcohol. No recreational drugs. FAMILY HISTORY: Unknown. REVIEW OF SYSTEMS: She had colonoscopy done on 02/22/2015 which showed a fecal impaction, otherwise it was negative. She had a hemorrhoid. Her CEA was then 9.4. HOME MEDICATIONS: 1. Methocarbamol. 2. Atenolol. 3. Clonazepam. 4. Lidocaine patch. 5. Phenazopyridine. PHYSICAL EXAMINATION GENERAL: Definitely lost significant weight, only subcutaneous muscle was seen. No fat. The patie nt is using accessory muscles to breathe. LUNGS: Air entry diminished at both bases. ABDOMEN: Benign. EXTREMITIES: No edema. Peripheral pulses over the dorsalis pedis appears to be diminished. LABORATORY DATA: WBC is 33, hematocrit is 42. BUN was 58, creatinine is 2, alkaline phosphatase wa s 255. HDL level was very low at 12. IMPRESSION: 1. Bronchitis, and bronchiolitis with possible pneumonia. 2. Leukocytosis 3. Dehydration. 4. Weight loss. 5. Abdominal pain and nausea, vomiting. 6. Cachexia. 7. Emphysema. 8. Chronic neck pain. 9. Psychiatric disorder. PLAN: At this point, is to continue Prevacid, hydration and IV antibiotics. Then once she is more stable, will do EGD. Patient also will be placed on Megace to stimulate appetite and we will monito r WBC count closely. This consult was done yesterday, 03/24/2017. Dictated By: KAILEY LOPEZ/YOJANA Conf#: [id number] DID#: [id number]
[2017-03-25] MEDS: LANSOPRAZOLE 30 MG CAP PO SCH (17:21)
[2017-03-25] MEDS: HYDROCODONE/APAP (5/325) TAB PO PRN (17:21)
[2017-03-25] MEDS ORDERED: VANCOMYCIN 500MG/NS (PMX) 100 ML IVPB SCH (18:00)
[2017-03-25] MEDS: METHOCARBAMOL 750 MG TAB PO SCH (20:46)
[2017-03-25] MEDS: clonAZEPAM 0.5 MG TAB PO SCH (20:47)
[2017-03-26] VITALS (11 sets, daily range): BP systolic 100–145; BP diastolic 70–80; PULSE 78–101; RESP 19–20
[2017-03-26] MEDS: HYDROmorphONE 2 MG TAB PO PRN (01:16)
[2017-03-26] MEDS: SOD CHLORIDE 0.9% 1,000 ML IV SCH ×2 (01:26→05:19)
[2017-03-26] MEDS: LANSOPRAZOLE 30 MG CAP PO SCH ×2 (05:19→17:38)
[2017-03-26] MEDS: LORAZEPAM 0.5 MG TAB PO PRN (05:19)
[2017-03-26] MEDS: PIPER-TAZO 2.25 GM (PMX) 50 ML IVPB SCH ×4 (05:19→23:59)
[2017-03-26 08:54] LABS: BASOPHILS % 0.2 % (0.0-2.0); EOSINOPHILS % 0.2 % (0.0-7.0); HEMATOCRIT 35.3 % (37.0-47.0); HEMOGLOBIN 10.7 g/dl (12.0-16.0); LYMPHOCYTES # 0.6 10^3/ul (0.8-2.9); LYMPHOCYTES % 4.7 % (15.0-51.0); MEAN CORPUSCULAR HEMOGLOBIN 26.1 pg (29.0-33.0); MEAN CORPUSCULAR HGB CONC 30.3 g/dl (32.0-37.0); MEAN CORPUSCULAR VOLUME 86.1 fl (82.0-101.0); MEAN PLATELET VOLUME 10.4 fl (7.4-10.4); MONOCYTE # 1.1 10^3/ul (0.3-0.9); MONOCYTES % 8.4 % (0.0-11.0); NEUTROPHIL # 11.3 10^3/ul (1.6-7.5); PLATELET COUNT 346 10^3/UL (140-415); WHITE BLOOD COUNT 13.3 10^3/ul (4.8-10.8)
[2017-03-26] MEDS ORDERED: INFLUENZA VIRUS VACCINE 0.5 ML (DISPENSING) IM* ONE (09:00)
[2017-03-26] MEDS: FLUTICASONE 0.05% 16 GM NAS SPRAY NASAL SCH (09:06)
[2017-03-26] MEDS: MEGESTROL (40 MG/ML) 10ML CUP PO SCH (09:16)
[2017-03-26] MEDS: clonAZEPAM 0.5 MG TAB PO SCH ×4 (09:17→20:57)
[2017-03-26] MEDS: METHOCARBAMOL 750 MG TAB PO SCH ×2 (09:17→20:57)
[2017-03-26] MEDS: LORATADINE 10 MG TAB PO SCH (09:17)
[2017-03-26] MEDS: morphine (ER) 15 MG TAB PO SCH ×2 (09:17→20:57)
[2017-03-26] MEDS: HEPARIN 5,000 UNIT/0.5 ML VIAL SC SCH ×2 (09:19→20:58)
[2017-03-26 09:31] LABS: ALBUMIN 2.1 g/dl (3.3-4.9); ALBUMIN/GLOBULIN RATIO 0.67; BILIRUBIN,INDIRECT 0.1 mg/dl (0-1.1); BILIRUBIN,TOTAL 0.1 mg/dl (0.2-1.3); CALCIUM 7.8 mg/dl (8.4-10.2); CREATININE 0.98 mg/dl (0.44-1.00); TOTAL PROTEIN 5.2 g/dl (6.1-8.1)
[2017-03-26 09:39] LABS: MAGNESIUM 2.1 mg/dl (1.7-2.5); PHOSPHORUS 2.5 mg/dl (2.5-4.9)
[2017-03-26] MEDS: SILVER SULFADIAZINE 1% 25 GM CR TOP SCH (11:19)
[2017-03-26] MEDS: VANCOMYCIN 500MG/NS (PMX) 100 ML IVPB SCH (11:19)
[2017-03-26] MEDS: DEXTROSE 5%-0.45% NACL 1,000 ML IV SCH (15:33)
--- NOTE | 2017-03-26 15:39 | CONS ---
Date/Time of Note Date/Time of Note DATE: 03/26/17 TIME: 15:38 Assessment/Plan Assessment/Plan Additional Assessment/Plan IMPRESSION: 1. Bronchitis, and bronchiolitis with possible pneumonia. 2. Leukocytosis 3. Dehydration. 4. Weight loss. 5. Abdominal pain and nausea, vomiting. 6. Cachexia. 7. Emphysema. 8. Chronic neck pain. 9. Psychiatric disorder. 10. CEAs height 36.5 Plan Continue PPI Continue Megace Nutritional support either Ensure or Glucerna 1 can 3 times daily. Once he is more stable will proceed with the GI workup Consultation Date/Type/Reason Admit Date/Time Mar 23, 2017 at 18:39 24 HR Interval Summary Free Text/Dictation Patient's p.o. intake is extremely poor. Breathing is much better Exam/Review of Systems Vital Signs Vitals Vital Signs Date Time Temp Pulse Resp B/P Pulse Ox O2 Delivery O2 Flow Rate FiO2 03/26/17 12:14 94 03/26/17 11:27 98.7 20 121/70 96 03/25/17 20:32 2.0 03/25/17 20:00 Nasal Cannula Intake and Output 03/25/17 03/25/17 03/26/17 15:00 23:00 07:00 Intake Total 100 ml 1500 ml 400 ml Output Total 700 ml 1400 ml Balance 100 ml 800 ml -1000 ml Exam Constitutional: alert, oriented, well developed Psych: nl mood/affect, no complaints Head: atraumatic, normocephalic Eyes: EOMI, PERRL, nl conjunctiva, nl lids, nl sclera ENMT: nl external ears & nose, nl lips & teeth, nl nasal mucosa & septum Neck: non-tender, supple Respiratory: clear to auscultation, normal air movement Cardiovascular: nl pulses, regular rate and rhythm Gastrointestinal: nl liver, spleen, non-tender, soft Musculoskeletal: nl extremities to inspection, nl gait and stance Extremities: normal pulses Neurological: 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2 Nucleated Red Blood Cells % 0.0 Neutrophils # 11.3 H Lymphocytes # 0.6 L Monocytes # 1.1 H Eosinophils # 0.0 Basophils # 0.0 Nucleated Red Blood Cells # 0.0 Sodium Level 146 H Potassium Level 4.0 Chloride Level 113 H Carbon Dioxide Level 27 Anion Gap 10 Blood Urea Nitrogen 21 #H Creatinine 0.98 Glucose Level 69 L Calcium Level 7.8 L Phosphorus Level 2.5 Magnesium Level 2.1 Total Bilirubin 0.1 L Direct Bilirubin 0.00 Indirect Bilirubin 0.1 Aspartate Amino Transf (AST/SGOT) 59 H Alanine Aminotransferase (ALT/SGPT) 45 Alkaline Phosphatase 242 H Total Protein 5.2 #L Albumin 2.1 L Globulin 3.10 Albumin/Globulin Ratio 0.67 Medications Medications Current Medications Lorazepam (Ativan) 0.5 mg Q8H PRN PO ANXIETY Last administered on 03/26/17 05 :19; Admin Dose 0.5 MG; Start 03/23/17 at 19:00 Ondansetron HCl (Zofran Inj) 4 mg Q6H PRN IV NAUSEA AND/OR VOMITING; Start 03/28 at 19:00 Acetaminophen (Tylenol Tab) 650 mg Q6H PRN PO PAIN LEVEL 1-3 OR FEVER; Start 03/23/17 at 19:00 Acetaminophen/ Hydrocodone Bitart ([place] (5/325)) 1 tab Q6H PRN PO PAIN LEVEL 4 -6 Last administered on 03/25/17 17:21; Admin Dose 1 TAB; Start 03/23/17 at 19:00 Docusate Sodium (Colace) 100 mg Q12H PRN PO CONSTIPATION Last administered on 03/25/17 08:42; Admin Dose 100 MG; Start 03/23/17 at 19:00 Magnesium Hydroxide (Milk Of Mag) 30 ml DAILY PRN PO CONSTIPATION Last administered on 03/25/17 08:42; Admin Dose 30 ML; Start 03/23/17 at 19:00 Heparin Sodium (Porcine) 5000 unit 5,000 unit Q12 SC Last administered on 03/26 09:19; Admin Dose 5,000 UNIT; Start 03/23/17 at 21:00 Piperacillin Sod/ Tazobactam Sod (Zosyn 2.25gm/ 50ml (Pmx)) 50 ml @ 100 mls/hr Q6 IVPB Last administered on 03/26/17 11:19; Admin Dose 100 MLS/HR; Start at 12:00 Hydromorphone HCl (Dilaudid) 2 mg Q4H PRN PO PAIN Last administered on 01:16; Admin Dose 2 MG; Start 03/24/17 at 23:00 Morphine Sulfate (Ms Contin (Er)) 15 mg BID PO Last administered on 03/26/17 09:17; Admin Dose 15 MG; Start 03/24/17 at 22:39 Loratadine (Claritin) 10 mg DAILY PO Last administered on 03/26/17 09:17; Admin Dose 10 MG; Start 03/25/17 at 09:00 Fluticasone Propionate (Flonase 0.05% Nasal) 1 spray DAILY NASAL Last administered on 03/26/17 09:06; Admin Dose 1 SPRAY; Start 03/25/17 at 09:00 Megestrol Acetate 800 mg 800 mg DAILY PO Last administered on 03/26/17 09:16 ; Admin Dose 800 MG; Start 03/26/17 at 09:00 Vancomycin HCl (Vancocin) 100 ml @ 100 mls/hr Q24H IVPB Last administered on 03/26/17 11:19; Admin Dose 100 MLS/HR; Start 03/25/17 at 11:30 Methocarbamol (Robaxin) 750 mg BID PO Last administered on 03/26/17 09:17; Admin Dose 750 MG; Start 03/25/17 at 21:00 Lansoprazole (Prevacid) 30 mg BID@06,18 PO Last administered on 03/26/17 05: 19; Admin Dose 30 MG; Start 03/25/17 at 18:00 Silver Sulfadiazine (Thermazene 1% 25 Gm) 1 applic DAILY TOP Last administered on 03/26/17 11:19; Admin Dose 1 APPLIC; Start 03/26/17 at 09:00 Miscellaneous Information VANCOMYCIN TROUGH ON 03/12... ONCE ONCE XX ; Start at 10:30; Stop 03/27/17 at 10:31 Dextrose/Sodium Chloride (D5-1/2ns) 1,000 ml @ 60 mls/hr [id number] IV Last administered on 03/26/17 15:33; Admin Dose 60 MLS/HR; Start 03/26/17 at 14:30 Clonazepam (Klonopin) 0.5 mg TID PO Last administered on 03/26/17 15:32; Admin Dose 0.5 MG; Start 03/26/17 at 15:00 KAILEY SETHI MD Mar 26, 2017 15:39
[2017-03-27] VITALS (12 sets, daily range): BP systolic 108–179; BP diastolic 72–102; PULSE 98–114; RESP 18–20
[2017-03-27] MEDS: HYDROmorphONE 2 MG TAB PO PRN (02:40)
[2017-03-27] MEDS: LANSOPRAZOLE 30 MG CAP PO SCH ×2 (05:39→17:46)
[2017-03-27] MEDS: PIPER-TAZO 2.25 GM (PMX) 50 ML IVPB SCH ×3 (05:39→17:46)
[2017-03-27] MEDS: DEXTROSE 5%-0.45% NACL 1,000 ML IV SCH ×2 (06:53→13:12)
--- NOTE | 2017-03-27 08:44 | PN ---
DATE: 03/26/2017 SUBJECTIVE: The patient seen and looks better, but unfortunately she continues not to eat much. Th e patient's close friend is at bedside; she says she will try to encourage her to eat more. The pat harsh's infection is under control as the white count is much better today at 13 with initially white count of 33 upon presentation. Kidney function is improving as well. Unfortunately, we are defini tely concerned about some type of malignancy. The patient's CEA is high as the patient is profoundl y malnourished with a BMI of 13.9. PHYSICAL EXAMINATION: VITAL SIGNS: Temperature 98.7, pulse 94, respiration 20, blood pressure ____, saturation is 96%. GENERAL: The patient is in no acute distress. The patient is frail, pale, temporal wasting. CARDIOVASCULAR: S1, S2 ____. LUNGS: Decreased bilaterally. ABDOMEN: Soft, nontender. EXTREMITIES: No clubbing, ____ or edema. Some cyanosis of the bilateral feet, actually better with hydration. LABORATORY DATA: White count 13.3, hemoglobin 10.7, hematocrit 35, platelet count 346, neutrophils ____, lymphocytes ____%. Sodium 146, potassium 4.0, chloride 113, bicarbonate ____, BUN is 21, crea tinine 0.98, glucose of 69, AST 59, ALT 45, alkaline phosphatase 242, albumin is 2.1 (low). CEA is 36.7, very, very high and concerning. TSH 0.68. Urinalysis on admission did show negative nitrites and negative leukocyte esterase. INR was 1.25. Urine culture showed strep beta-hemolytic group F and blood cultures also showed alpha-hemolytic strep. CURRENT MEDICATIONS: Include: 1. Vancomycin dosed per pharmacy. 2. Megace 800 daily. 3. ____ daily topically. 4. Klonopin 1 mg t.i.d. 5. Robaxin 750 b.i.d. 6. Prevacid 30 mg b.i.d. 7. ____ mg daily. 8. Flonase daily. 9. Dilaudid p.r.n. 10. MS-Contin 50 mg b.i.d. 11. DuoNeb p.r.n. 12. Zosyn 3.375 IV q.6. 13. Heparin 5000 subQ q.12. 14. Ativan p.r.n. 15. Zofran p.r.n. 16. Tylenol p.r.n. 17. [place] p.r.n. 18. Milk of magnesia p.r.n. 19. Normal saline at ____ mL an hour. ASSESSMENT AND PLAN: This is a very unfortunate 66-year-old female with history of severe emphysema, nicotine dependency, chronic pain syndrome, hypertension, psychiatric disorder, anemia, peripheral vascular disease, who presented with severe weight loss, found to be septic from a urinar y tract infection and possible pneumonia. 1. Respiratory, stable. Continue treatment for pneumonia and bronchitis. Continue O2 support. Wh ite count is improving. 2. Cardiovascular. Continue heparin for deep venous thrombosis prophylaxis. 3. Infectious disease. The patient with urinary tract infection and bacteremia. Continue Zosyn. May be able to discontinue vancomycin. I will repeat blood cultures. 4. Severe malnutrition. Continue Megace. Would try maybe to decrease sedatives such as [place] or K lonopin as the patient is sleeping right now and not eating as much. 5. Possible dysphagia ____ weight loss. Will proceed with EGD when the patient is more stable per Dr. James. 6. Acute renal failure, resolving. Switch IV fluids to D5 half normal as the patient slightly has hypernatremia and hypoglycemia. 7. Psychiatric disorder. Continue low-dose of clonazepam. 8. Rheumatoid arthritis. Continue supportive care. Overall, long-term prognosis is poor secondary to weight and ongoing medical issues. We will follow. Dictated By: ZACKARY ANGELA/YOJANA Conf#: [id number] DID#: [id number]
[2017-03-27] MEDS: MEGESTROL (40 MG/ML) 10ML CUP PO SCH (08:46)
[2017-03-27] MEDS: clonAZEPAM 0.5 MG TAB PO SCH ×4 (08:47→21:05)
[2017-03-27] MEDS: HEPARIN 5,000 UNIT/0.5 ML VIAL SC SCH ×2 (08:48→21:56)
[2017-03-27] MEDS: METHOCARBAMOL 750 MG TAB PO SCH ×2 (08:50→21:06)
[2017-03-27] MEDS: LORATADINE 10 MG TAB PO SCH (08:50)
[2017-03-27] MEDS: morphine (ER) 15 MG TAB PO SCH ×2 (08:51→21:06)
[2017-03-27] MEDS: FLUTICASONE 0.05% 16 GM NAS SPRAY NASAL SCH (08:53)
[2017-03-27] MEDS: SILVER SULFADIAZINE 1% 25 GM CR TOP SCH (08:53)
[2017-03-27] MEDS: VANCOMYCIN 500MG/NS (PMX) 100 ML IVPB SCH (11:37)
--- NOTE | 2017-03-27 19:53 | CONS ---
Date/Time of Note Date/Time of Note DATE: 03/27/17 TIME: 19:53 Assessment/Plan Assessment/Plan Additional Assessment/Plan Additional Assessment/Plan IMPRESSION: 1. Bronchitis, and bronchiolitis with possible pneumonia. 2. Leukocytosis 3. Dehydration. 4. Weight loss. 5. Abdominal pain and nausea, vomiting. 6. Cachexia. 7. Emphysema. 8. Chronic neck pain. 9. Psychiatric disorder. 10. CEAs height 36.5 11. Patient is lethargic Plan Continue PPI Continue Megace Nutritional support either Ensure or Glucerna 1 can 3 times daily. Once he is more stable will proceed with the GI workup Enteral nutrition patient has agreed for that Consultation Date/Type/Reason Admit Date/Time Mar 23, 2017 at 18:39 24 HR Interval Summary Free Text/Dictation Discussed with the friends patient's p.o. intake is extremely poor Exam/Review of Systems Vital Signs Vitals Vital Signs Date Time Temp Pulse Resp B/P Pulse Ox O2 Delivery O2 Flow Rate FiO2 03/27/17 16:32 2.0 03/27/17 16:13 107 03/27/17 15:59 99.1 18 155/88 94 03/27/17 08:00 Nasal Cannula Intake and Output 03/26/17 03/26/17 03/27/17 14:59 22:59 06:59 Intake Total 550 ml 890 ml Output Total 500 ml 700 ml Balance 50 ml 190 ml Exam Respiratory: clear to auscultation, normal air movement Cardiovascular: nl pulses, regular rate and rhythm Gastrointestinal: nl liver, spleen, non-tender, soft Musculoskeletal: nl extremities to inspection, nl gait and stance Neurological: lethargic Results Result Diagram: 03/26/17 0743 03/26/17 0743 Results 24 hrs Laboratory Tests Test 03/27/17 10:30 Vancomycin Level Trough 6.8 L Medications Medications Current Medications Lorazepam (Ativan) 0.5 mg Q8H PRN PO ANXIETY Last administered on 03/26/17t 05 :19; Admin Dose 0.5 MG; Start 03/23/17 at 19:00 Ondansetron HCl (Zofran Inj) 4 mg Q6H PRN IV NAUSEA AND/OR VOMITING; Start 03/28 at 19:00 Acetaminophen (Tylenol Tab) 650 mg Q6H PRN PO PAIN LEVEL 1-3 OR FEVER; Start 03/23/17 at 19:00 Acetaminophen/ Hydrocodone Bitart ([place] (5/325)) 1 tab Q6H PRN PO PAIN LEVEL 4 -6 Last administered on 03/25/17 17:21; Admin Dose 1 TAB; Start 03/23/17 at 19:00 Docusate Sodium (Colace) 100 mg Q12H PRN PO CONSTIPATION Last administered on 03/25/17 08:42; Admin Dose 100 MG; Start 03/23/17 at 19:00 Magnesium Hydroxide (Milk Of Mag) 30 ml DAILY PRN PO CONSTIPATION Last administered on 03/25/17 08:42; Admin Dose 30 ML; Start 03/23/17 at 19:00 Heparin Sodium (Porcine) 5000 unit 5,000 unit Q12 SC Last administered on 03/27 08:48; Admin Dose 5,000 UNIT; Start 03/23/17 at 21:00 Piperacillin Sod/ Tazobactam Sod (Zosyn 2.25gm/ 50ml (Pmx)) 50 ml @ 100 mls/hr Q6 IVPB Last administered on 03/27/17 17:46; Admin Dose 100 MLS/HR; Start at 12:00 Hydromorphone HCl (Dilaudid) 2 mg Q4H PRN PO PAIN Last administered on 02:40; Admin Dose 2 MG; Start 03/24/17 at 23:00 Morphine Sulfate (Ms Contin (Er)) 15 mg BID PO Last administered on 03/27/17 08:51; Admin Dose 15 MG; Start 03/24/17 at 22:39 Loratadine (Claritin) 10 mg DAILY PO Last administered on 03/27/17 08:50; Admin Dose 10 MG; Start 03/25/17 at 09:00 Fluticasone Propionate (Flonase 0.05% Nasal) 1 spray DAILY NASAL Last administered on 03/27/17 08:53; Admin Dose 1 SPRAY; Start 03/25/17 at 09:00 Megestrol Acetate (Megace Susp) 800 mg DAILY PO Last administered on 08:46; Admin Dose 800 MG; Start 03/26/17 at 09:00 Methocarbamol (Robaxin) 750 mg BID PO Last administered on 03/27/17 08:50; Admin Dose 750 MG; Start 03/25/17 at 21:00 Lansoprazole (Prevacid) 30 mg BID@,18 PO Last administered on 03/27/17 17: 46; Admin Dose 30 MG; Start 03/25/17 at 18:00 Silver Sulfadiazine (Thermazene 1% 25 Gm) 1 applic DAILY TOP Last administered on 03/27/17 08:53; Admin Dose 1 APPLIC; Start 03/26/17 at 09:00 Clonazepam (Klonopin) 0.5 mg TID PO Last administered on 03/27/17 13:16; Admin Dose 0.5 MG; Start 03/26/17 at 15:00 Metoprolol Tartrate (Lopressor) 25 mg BID PO ; Start 03/27/17 at 21:00 KAILEY SETHI MD Mar 27, 2017 19:53
[2017-03-27] MEDS ORDERED: METOPROLOL 25 MG TAB PO SCH (21:00)
[2017-03-27] MEDS ORDERED: VANCOMYCIN 500MG/NS (PMX) 100 ML IVPB SCH (23:00)
[2017-03-28] VITALS (12 sets, daily range): BP systolic 134–181; BP diastolic 84–102; PULSE 90–111; RESP 18–19
[2017-03-28] MEDS: PIPER-TAZO 2.25 GM (PMX) 50 ML IVPB SCH ×4 (00:43→18:21)
[2017-03-28] MEDS: LORAZEPAM 0.5 MG TAB PO PRN (00:43)
--- NOTE | 2017-03-28 06:17 | PN ---
DATE: 03/27/2017 SUBJECTIVE: Patient seen. The patient overall is very weak and not eating as much as we would like . A friend is at bedside. Case discussed. The patient does have a strep bacteremia and UTI. I di scontinued vancomycin. Case discussed with Dr. Reynolds. PHYSICAL EXAMINATION: VITAL SIGNS: Temperature 99.1, pulse is up to 107, respirations 18, blood pressure 155/88, saturati on 94%. GENERAL: The patient is a very frail, cachectic, pale. CARDIOVASCULAR: S1 and S2. LUNGS: Decreased bilaterally. ABDOMEN: Soft, nontender. EXTREMITIES: Trace edema lower extremity and left foot slight discoloration as the patient has munira pheral vascular disease and venous stasis. LABORATORY DATA: No new labs dated today. The white count improved to 13.2. BUN and creatinine im proved to 21/0.98. We will Hep-Lock IV fluids to prevent fluid overload state. We will repeat bloo d cultures as well and MRSA screening, preliminary report is still pending. MEDICATIONS: 1. Klonopin 0.5 t.i.d. I reduced dose as the patient was maybe more lethargic. half normal at 50 mL an hour. We will Hep-Lock Megace 800 daily. 2. Silvadene cream daily. 3. Robaxin 750 b.i.d. 4. Prevacid 30 mg twice a day. 5. Claritin 10 mg daily. 6. Flonase daily. 7. Dilaudid p.o. p.r.n. 8. MS Contin 15 b.i.d. 9. DuoNebs p.r.n. 10. Zosyn 3.375 IV q.6. 11. Heparin 5000 units subcutaneous q.12. 12. Ativan p.r.n. 13. Zofran p.r.n. 13. Tylenol p.r.n. 14. [place] p.r.n. 15. Colace p.r.n. 16. Milk of Magnesia p.r.n. ASSESSMENT AND PLAN: This is a very unfortunate 66-year-old female with history of severe lymphedema, nicotine dependency, chronic pain syndrome, hypertension, psychiatric disorder, anemia, peripheral vascular disease, who presented with severe weight loss, was found to be septic from uri nary tract infection leading to bacteremia and possible underlying pneumonia as well. 1. Respiratory. Continue support. Continue aspiration precautions, O2 support. 2. Cardiovascular. Continue deep venous thrombosis prophylaxis with heparin. We will add beta-blo ckers as the patient is hypertensive and slightly tachycardic. 3. Infectious disease. The patient with bacteremia urinary tract infection. Continue Zosyn. Disc ontinue vancomycin. Repeat blood cultures. 4. Severe malnutrition. Continue Megace and protein supplements. May benefit from G-tube placemen t. 5. Elevated CEA and severe weight loss. Definitely concerning for malignancy. EGD when more stabl e, plus or minus colonoscopy. 6. Acute renal failure, resolving with hydration. 7. Psychiatric disorder. Again, try to titrate medications in the setting of lethargy. 8. Rheumatoid arthritis. Continue supportive care. Overall, long-term prognosis is not very good because of her weight and her overall condition. We will follow. Dictated By: ZACKARY ANGELA/YOJANA Conf#: [id number] DID#: [id number]
[2017-03-28] MEDS: LANSOPRAZOLE 30 MG CAP PO SCH ×2 (06:30→18:00)
[2017-03-28 07:37] LABS: ABNORMAL IP MESSAGE 1; BASOPHILS % 0.3 % (0.0-2.0); EOSINOPHILS # 0.1 10^3/ul (0.0-0.5); EOSINOPHILS % 0.6 % (0.0-7.0); HEMATOCRIT 39.7 % (37.0-47.0); HEMOGLOBIN 12.3 g/dl (12.0-16.0); LYMPHOCYTES # 1.7 10^3/ul (0.8-2.9); LYMPHOCYTES % 10.8 % (15.0-51.0); MEAN CORPUSCULAR HEMOGLOBIN 26.1 pg (29.0-33.0); MEAN CORPUSCULAR VOLUME 84.1 fl (82.0-101.0); MEAN PLATELET VOLUME 10.2 fl (7.4-10.4); MONOCYTE # 1.6 10^3/ul (0.3-0.9); MONOCYTES % 10.4 % (0.0-11.0); NEUTROPHIL # 11.3 10^3/ul (1.6-7.5); NEUTROPHILS % 73.3 % (39.0-77.0); PLATELET COUNT 350 10^3/UL (140-415); POSITIVE DIFF @See below; RED BLOOD COUNT 4.72 10^6/ul (4.20-5.40); RED CELL DISTRIBUTION WIDTH 17.3 % (11.5-14.5); WHITE BLOOD COUNT 15.3 10^3/ul (4.8-10.8)
[2017-03-28 08:06] LABS: ALBUMIN 2.6 g/dl (3.3-4.9); ALBUMIN/GLOBULIN RATIO 0.68; BILIRUBIN,INDIRECT 0.3 mg/dl (0-1.1); BILIRUBIN,TOTAL 0.3 mg/dl (0.2-1.3); CALCIUM 8.7 mg/dl (8.4-10.2); CREATININE 0.76 mg/dl (0.44-1.00); POTASSIUM 3.1 mmol/L (3.5-5.1); TOTAL PROTEIN 6.4 g/dl (6.1-8.1)
[2017-03-28 08:17] LABS: MAGNESIUM 1.6 mg/dl (1.7-2.5); PHOSPHORUS 2.2 mg/dl (2.5-4.9)
[2017-03-28] MEDS: FLUTICASONE 0.05% 16 GM NAS SPRAY NASAL SCH (09:00)
[2017-03-28] MEDS ORDERED: VITAMIN A & D 5 GM OINT PACKET TOP ONE (09:00)
[2017-03-28] MEDS ORDERED: POTASSIUM CHLORIDE (SR) 20 MEQ TAB PO STA (09:25)
[2017-03-28] MEDS ORDERED: MAGNESIUM SULFATE 2 GM/50 ML 50 ML IVPB ONE (09:30)
[2017-03-28] MEDS: MEGESTROL (40 MG/ML) 10ML CUP PO SCH (09:41)
[2017-03-28] MEDS: METHOCARBAMOL 750 MG TAB PO SCH (09:41)
[2017-03-28] MEDS: morphine (ER) 15 MG TAB PO SCH ×2 (09:41→21:21)
[2017-03-28] MEDS: clonAZEPAM 0.5 MG TAB PO SCH ×3 (09:41→21:21)
[2017-03-28] MEDS: LORATADINE 10 MG TAB PO SCH (09:41)
[2017-03-28] MEDS: METOPROLOL 25 MG TAB PO SCH (09:42)
[2017-03-28] MEDS: AMLODIPINE 2.5 MG TAB PO SCH (09:45)
[2017-03-28] MEDS: SILVER SULFADIAZINE 1% 25 GM CR TOP SCH (09:46)
[2017-03-28] MEDS: HEPARIN 5,000 UNIT/0.5 ML VIAL SC SCH ×2 (09:48→21:32)
[2017-03-28] MEDS ORDERED: POTASSIUM PHOSPHATE 20 MEQ in SOD CHLORIDE 0.9% 250 ML IVPB SCH (11:00)
[2017-03-28] MEDS: LACTULOSE 30ML CUP PO SCH (12:16)
--- NOTE | 2017-03-28 15:04 | PN ---
DATE: 03/28/2017 SUBJECTIVE: Patient is seen. The patient is alert but slightly tachypneic. I discussed with her, code status, she wants everything done. I mentioned hospice as well as the patient's condition is q uite serious. Case discussed with patient's close friend who is with her all the time for many year s. Noted Dr. James input. PHYSICAL EXAMINATION VITAL SIGNS: Temperature 97.9, pulse 95, blood pressure is elevated at 174/99. Will adjust medicat ions. Respirations 18, saturation 93% on 2 liters. GENERAL: The patient is in no acute distress but tachypneic. She feels comfortable. HEENT: With temporal wasting, pale. CARDIOVASCULAR: S1 and S2, tachycardic. LUNGS: Decreased bilaterally, no wheezing or rhonchi. ABDOMEN: Soft, nontender. EXTREMITIES: No clubbing, cyanosis, or edema. She does have some hyperpigmentation of the lower ex tremities below the mid-tibia suggestive of peripheral vascular disease. LABORATORY DATA: White count remains high at 15.3, hemoglobin 12.3, hematocrit 40, platelet count 3 50, neutrophils 73%, lymphocytes 11%. Chemistry: Sodium 137, potassium is slightly low at 3.4, chl oride 105, bicarbonate 25, BUN is 34, creatinine improved to 1.14 and glucose is documented at 68, c alcium 7.7. CEA is 36, another one done was 76, so it is quite high. CA 19-9 normal at 16. The terrie posey's initial blood culture shows alpha hemolytic strep, and urine culture shows strep. Repeat bl ood cultures negative. MEDICATIONS: 1. I increased the Lopressor to 50 b.i.d. 2. K-Phos x1. 3. Magnesium sulfate x1. 4. Norvasc 2.5 daily, I just added that. 5. Klonopin 0.5 t.i.d. 6. Megace 800 daily. 7. Silvadene cream daily. 8. Robaxin 750 b.i.d., will reduce to 500. 9. Prevacid 30 mg b.i.d. 10. Claritin 10 mg daily. 11. Dilaudid p.r.n. p.o. 12. Morphine sulfate 15 b.i.d. 13. Zosyn 3.375 IV q.6. 14. Heparin 5000 subQ q.12. 15. Ativan p.r.n. 16. Zofran p.r.n. 17. Tylenol p.r.n. 18. [place] p.r.n. 19. Colace p.r.n. CT scan of abdomen and pelvis which was done on admission shows just advanced centrilobular emphysem a with bronchitis and patchy bronchiolitis at both lung bases. There is patchy consolidation, bronc hiolitis in the visualized inferior right middle lobe. Dedicated CT can be performed for further ev aluation. There is benign 2.4 right renal cyst. Moderate volume stool throughout the colon suggest ing constipation, body wall edema. Vascular calcifications. ASSESSMENT AND PLAN: This is a very unfortunate 66-year-old female with history of severe emphysema, nicotine dependency, chronic pain syndrome, hypertension, psychiatric disorder, anemia, peripheral vascular disease, who presented with severe weight loss, was found to have sepsis from [place] and leading to bacteremia, possible underlying pneumonia as well. 1. Respiratory. Continue supportive care, breathing treatment p.r.n. The patient with advanced chr onic obstructive pulmonary disease. 2. Cardiovascular. Continue deep venous thrombosis prophylaxis with heparin. Will increase beta b lockers to Metoprolol 50 b.i.d. and add amlodipine. 3. Infectious disease, currently bacteremic. Repeat blood cultures negative. Continue Zosyn. Whi te count is slightly higher today, observe. 4. Severe malnutrition. Continue Megace and protein supplements. 5. Elevated CEA and severe weight loss, very concerning for malignancy. Exact primary can be evalu ated possibly with the EGD and colonoscopy to start with when the patient is more stable. May consi marilee a G-tube placement. The patient is very cachectic. 6. Acute renal failure, improving with gentle hydration. 7. Psychiatric disorder. Try to limit some of her meds to prevent lethargy in the setting of sever e emphysema. 8. Rheumatoid arthritis. Continue supportive care. Patient has been on various pain medications. 9. Increase stool softeners as she has constipation noted on CAT scan. 10. Continue Prevacid for gastrointestinal prophylaxis. Overall, prognosis is guarded. My recommendation is hospice care, as long-term, I do not anticipate good outcome. We will follow. Dictated By: ZACKARY ANGELA/YOJANA Conf#: [id number] [facility]#: [id number]
--- NOTE | 2017-03-28 16:43 | CONS ---
Date/Time of Note Date/Time of Note DATE: 03/28/17 TIME: 16:43 Assessment/Plan Assessment/Plan Additional Assessment/Plan Additional Assessment/Plan IMPRESSION: 1. Bronchitis, and bronchiolitis with possible pneumonia. 2. Leukocytosis 3. Dehydration. 4. Weight loss. 5. Abdominal pain and nausea, vomiting. 6. Cachexia. 7. Emphysema. 8. Chronic neck pain. 9. Psychiatric disorder. 10. CEAs height 36.5 11. Patient is lethargic Plan Continue PPI Continue Megace Nutritional support either Ensure or Glucerna 1 can 3 times daily. Once he is more stable will proceed with the GI workup Enteral nutrition patient has agreed for that Consultation Date/Type/Reason Admit Date/Time Mar 23, 2017 at 18:39 24 HR Interval Summary Constitutional: no complaints Exam/Review of Systems Vital Signs Vitals Vital Signs Date Time Temp Pulse Resp B/P Pulse Ox O2 Delivery O2 Flow Rate FiO2 03/28/17 16:20 98.7 90 19 136/84 90 03/28/17 08:00 Nasal Cannula 2.0 Intake and Output 03/27/17 03/27/17 03/28/17 15:00 23:00 07:00 Intake Total 200 ml 100 ml Output Total 700 ml Balance -500 ml 100 ml Exam Constitutional: alert, oriented, well developed Psych: nl mood/affect, no complaints Head: atraumatic, normocephalic Eyes: EOMI, PERRL, nl conjunctiva, nl lids, nl sclera ENMT: nl external ears & nose, nl lips & teeth, nl nasal mucosa & septum Neck: non-tender, supple Respiratory: clear to auscultation, normal air movement Cardiovascular: nl pulses, regular rate and rhythm Gastrointestinal: nl liver, spleen, non-tender, soft Musculoskeletal: nl extremities to inspection, nl gait and stance Extremities: normal pulses Neurological: POPCORN VENDOR II-XII intact, nl mental status, nl speech, nl strength Skin: nl turgor, No rash or lesions Lymph: nl lymph nodes Results Result Diagram: 03/28/17 0649 03/28/17 0649 Results 24 hrs Laboratory Tests Test 03/28/17 06:49 White Blood Count 15.3 H Red Blood Count 4.72 Hemoglobin 12.3 Hematocrit 39.7 Mean Corpuscular Volume 84.1 Mean Corpuscular Hemoglobin 26.1 L Mean Corpuscular Hemoglobin Concent 31.0 L Red Cell Distribution Width 17.3 H Platelet Count 350 Mean Platelet Volume 10.2 Neutrophils % 73.3 Lymphocytes % 10.8 L Monocytes % 10.4 Eosinophils % 0.6 Basophils % 0.3 Nucleated Red Blood Cells % 0.0 Neutrophils # 11.3 H Lymphocytes # 1.7 Monocytes # 1.6 H Eosinophils # 0.1 Basophils # 0.0 Nucleated Red Blood Cells # 0.0 Sodium Level 148 H Potassium Level 3.1 L Chloride Level 108 Carbon Dioxide Level 32 H Anion Gap 11 Blood Urea Nitrogen 12 # Creatinine 0.76 Glucose Level 110 # Calcium Level 8.7 Phosphorus Level 2.2 L Magnesium Level 1.6 L Total Bilirubin 0.3 Direct Bilirubin 0.00 Indirect Bilirubin 0.3 Aspartate Amino Transf (AST/SGOT) 40 Alanine Aminotransferase (ALT/SGPT) 47 Alkaline Phosphatase 259 H Total Protein 6.4 # Albumin 2.6 L Globulin 3.80 H Albumin/Globulin Ratio 0.68 Medications Medications Current Medications Lorazepam (Ativan) 0.5 mg Q8H PRN PO ANXIETY Last administered on 03/28/17 00 :43; Admin Dose 0.5 MG; Start 03/23/17 at 19:00 Ondansetron HCl (Zofran Inj) 4 mg Q6H PRN IV NAUSEA AND/OR VOMITING; Start 03/28 at 19:00 Acetaminophen (Tylenol Tab) 650 mg Q6H PRN PO PAIN LEVEL 1-3 OR FEVER; Start 03/23/17 at 19:00 Acetaminophen/ Hydrocodone Bitart ([place] (5/325)) 1 tab Q6H PRN PO PAIN LEVEL 4 -6 Last administered on 03/25/17 17:21; Admin Dose 1 TAB; Start 03/23/17 at 19:00 Docusate Sodium (Colace) 100 mg Q12H PRN PO CONSTIPATION Last administered on 03/25/17 08:42; Admin Dose 100 MG; Start 03/23/17 at 19:00 Magnesium Hydroxide (Milk Of Mag) 30 ml DAILY PRN PO CONSTIPATION Last administered on 03/25/17 08:42; Admin Dose 30 ML; Start 03/23/17 at 19:00 Heparin Sodium (Porcine) 5000 unit 5,000 unit Q12 SC Last administered on 03/28 09:48; Admin Dose 5,000 UNIT; Start 03/23/17 at 21:00 Piperacillin Sod/ Tazobactam Sod (Zosyn 2.25gm/ 50ml (Pmx)) 50 ml @ 100 mls/hr Q6 IVPB Last administered on 03/28/17 12:16; Admin Dose 100 MLS/HR; Start at 12:00 Morphine Sulfate (Ms Contin (Er)) 15 mg BID PO Last administered on 03/28/17 09:41; Admin Dose 15 MG; Start 03/24/17 at 22:39 Loratadine (Claritin) 10 mg DAILY PO Last administered on 03/28/17 09:41; Admin Dose 10 MG; Start 03/25/17 at 09:00 Fluticasone Propionate (Flonase 0.05% Nasal) 1 spray DAILY NASAL Last administered on 03/27/17 08:53; Admin Dose 1 SPRAY; Start 03/25/17 at 09:00 Megestrol Acetate (Megace Susp) 800 mg DAILY PO Last administered on 09:41; Admin Dose 800 MG; Start 03/26/17 at 09:00 Lansoprazole (Prevacid) 30 mg BID@06,18 PO Last administered on 03/28/17 06: 30; Admin Dose 30 MG; Start 03/25/17 at 18:00 Silver Sulfadiazine (Thermazene 1% 25 Gm) 1 applic DAILY TOP Last administered on 03/28/17 09:46; Admin Dose 1 APPLIC; Start 03/26/17 at 09:00 Clonazepam (Klonopin) 0.5 mg TID PO Last administered on 03/28/17 12:16; Admin Dose 0.5 MG; Start 03/26/17 at 15:00 Metoprolol Tartrate (Lopressor) 50 mg BID PO Last administered on 03/28/17 09 :42; Admin Dose 50 MG; Start 03/28/17 at 21:00 Amlodipine Besylate (Norvasc) 2.5 mg DAILY PO Last administered on 03/28/17 09:45; Admin Dose 2.5 MG; Start 03/28/17 at 09:30 Methocarbamol (Robaxin) 500 mg BID PO ; Start 03/28/17 at 21:00 Lactulose (Enulose) 10 gm DAILY PO Last administered on 03/28/17t 12:16; Admin Dose 10 GM; Start 03/28/17 at 10:30 KAILEY SETHI MD Mar 28, 2017 16:43
[2017-03-28] MEDS ORDERED: METHOCARBAMOL 750 MG TAB PO SCH (21:00)
[2017-03-28] MEDS: METHOCARBAMOL 500 MG TAB PO SCH (21:21)
[2017-03-29] VITALS (10 sets, daily range): BP systolic 141–176; BP diastolic 86–95; PULSE 72–95; RESP 17–20
[2017-03-29] MEDS: PIPER-TAZO 2.25 GM (PMX) 50 ML IVPB SCH ×4 (00:59→18:12)
[2017-03-29] MEDS: LORAZEPAM 0.5 MG TAB PO PRN (01:36)
[2017-03-29] MEDS: LANSOPRAZOLE 30 MG CAP PO SCH ×2 (05:40→18:13)
[2017-03-29] MEDS: morphine (ER) 15 MG TAB PO SCH (09:00)
[2017-03-29 09:25] LABS: BASOPHIL # 0.1 10^3/ul (0.0-0.1); BASOPHILS % 0.4 % (0.0-2.0); EOSINOPHILS % 0.2 % (0.0-7.0); HEMATOCRIT 40.7 % (37.0-47.0); HEMOGLOBIN 12.5 g/dl (12.0-16.0); LYMPHOCYTES # 1.9 10^3/ul (0.8-2.9); LYMPHOCYTES % 15.4 % (15.0-51.0); MEAN CORPUSCULAR HEMOGLOBIN 25.9 pg (29.0-33.0); MEAN CORPUSCULAR HGB CONC 30.7 g/dl (32.0-37.0); MEAN CORPUSCULAR VOLUME 84.4 fl (82.0-101.0); MEAN PLATELET VOLUME 9.8 fl (7.4-10.4); MONOCYTE # 1.1 10^3/ul (0.3-0.9); MONOCYTES % 8.3 % (0.0-11.0); NEUTROPHIL # 9.1 10^3/ul (1.6-7.5); PLATELET COUNT 337 10^3/UL (140-415); RED BLOOD COUNT 4.82 10^6/ul (4.20-5.40); RED CELL DISTRIBUTION WIDTH 17.1 % (11.5-14.5); WHITE BLOOD COUNT 12.6 10^3/ul (4.8-10.8)
[2017-03-29 09:37] LABS: ALBUMIN 2.5 g/dl (3.3-4.9); ALBUMIN/GLOBULIN RATIO 0.67; BILIRUBIN,INDIRECT 0.3 mg/dl (0-1.1); BILIRUBIN,TOTAL 0.3 mg/dl (0.2-1.3); CALCIUM 8.3 mg/dl (8.4-10.2); CREATININE 0.78 mg/dl (0.44-1.00); POTASSIUM 3.2 mmol/L (3.5-5.1); TOTAL PROTEIN 6.2 g/dl (6.1-8.1)
[2017-03-29 09:40] LABS: MAGNESIUM 1.8 mg/dl (1.7-2.5); PHOSPHORUS 3.5 mg/dl (2.5-4.9)
[2017-03-29] MEDS: HEPARIN 5,000 UNIT/0.5 ML VIAL SC SCH ×2 (09:47→21:05)
[2017-03-29] MEDS: FLUTICASONE 0.05% 16 GM NAS SPRAY NASAL SCH (09:48)
[2017-03-29] MEDS: SILVER SULFADIAZINE 1% 25 GM CR TOP SCH (09:48)
[2017-03-29] MEDS: LACTULOSE 30ML CUP PO SCH (09:50)
[2017-03-29] MEDS: METHOCARBAMOL 500 MG TAB PO SCH ×2 (09:52→21:04)
[2017-03-29] MEDS: AMLODIPINE 2.5 MG TAB PO SCH (09:52)
[2017-03-29] MEDS: MEGESTROL (40 MG/ML) 10ML CUP PO SCH (09:52)
[2017-03-29] MEDS: LORATADINE 10 MG TAB PO SCH (09:53)
[2017-03-29] MEDS: METOPROLOL 25 MG TAB PO SCH ×2 (09:53→21:04)
[2017-03-29] MEDS: clonAZEPAM 0.5 MG TAB PO SCH ×3 (09:53→21:03)
[2017-03-29] MEDS ORDERED: POTASSIUM CHLORIDE (SR) 20 MEQ TAB PO STA (11:57)
[2017-03-29] MEDS ORDERED: POTASSIUM CHLORIDE 20 MEQ POWDER FOR ORAL SOLN PO ONE (12:30)
--- NOTE | 2017-03-29 14:37 | CONS ---
Date/Time of Note Date/Time of Note DATE: 03/29/17 TIME: 14:35 Assessment/Plan Assessment/Plan Additional Assessment/Plan IMPRESSION: 1. Bronchitis, and bronchiolitis with possible pneumonia. 2. Leukocytosis 3. Dehydration. 4. Weight loss. 5. Abdominal pain and nausea, vomiting. 6. Cachexia. 7. Emphysema. 8. Chronic neck pain. 9. Psychiatric disorder. 10. CEAs height 36.5 11. Patient is lethargic Plan Continue PPI Continue Megace Nutritional support either Ensure or Glucerna 1 can 3 times daily. Once he is more stable will proceed with the GI workup Enteral nutrition patient has agreed for that. Patient p.o. intake is still poor, she is very cachectic and definitely needs nutritional support. Patient is agreed for NG tube and after few days if she does not eat then will proceed with the PEG Consultation Date/Type/Reason Admit Date/Time Mar 23, 2017 at 18:39 24 HR Interval Summary Constitutional: improved Exam/Review of Systems Vital Signs Vitals Vital Signs Date Time Temp Pulse Resp B/P Pulse Ox O2 Delivery O2 Flow Rate FiO2 03/29/17 12:00 77 03/29/17 11:55 98.0 20 149/86 90 03/29/17 08:04 2.0 03/28/17 20:00 Nasal Cannula Intake and Output 03/28/17 03/28/17 03/29/17 15:00 23:00 07:00 Intake Total 240 ml 800 ml 100 ml Output Total 1400 ml 1650 ml Balance -1160 ml -850 ml 100 ml Exam Constitutional: alert, oriented, well developed Psych: nl mood/affect, no complaints Head: atraumatic, normocephalic Eyes: EOMI, PERRL, nl conjunctiva, nl lids, nl sclera ENMT: nl external ears & nose, nl lips & teeth, nl nasal mucosa & septum Neck: non-tender, supple Respiratory: clear to auscultation, normal air movement Cardiovascular: nl pulses, regular rate and rhythm Gastrointestinal: nl liver, spleen, non-tender, soft Musculoskeletal: nl extremities to inspection, nl gait and stance Extremities: normal pulses Neurological: FULLERETTE II-XII intact, nl mental status, nl speech, nl strength Skin: nl turgor, No rash or lesions Lymph: nl lymph nodes Results Result Diagram: 03/29/17 0839 03/29/17 0839 Results 24 hrs Laboratory Tests Test 03/29/17 08:39 White Blood Count 12.6 H Red Blood Count 4.82 Hemoglobin 12.5 Hematocrit 40.7 Mean Corpuscular Volume 84.4 Mean Corpuscular Hemoglobin 25.9 L Mean Corpuscular Hemoglobin Concent 30.7 L Red Cell Distribution Width 17.1 H Platelet Count 337 Mean Platelet Volume 9.8 Neutrophils % 72.0 Lymphocytes % 15.4 Monocytes % 8.3 Eosinophils % 0.2 Basophils % 0.4 Nucleated Red Blood Cells % 0.0 Neutrophils # 9.1 H Lymphocytes # 1.9 Monocytes # 1.1 H Eosinophils # 0.0 Basophils # 0.1 Nucleated Red Blood Cells # 0.0 Sodium Level 145 H Potassium Level 3.2 L Chloride Level 104 Carbon Dioxide Level 33 H Anion Gap 11 Blood Urea Nitrogen 13 Creatinine 0.78 Glucose Level 88 Calcium Level 8.3 L Phosphorus Level 3.5 Magnesium Level 1.8 Total Bilirubin 0.3 Direct Bilirubin 0.00 Indirect Bilirubin 0.3 Aspartate Amino Transf (AST/SGOT) 33 Alanine Aminotransferase (ALT/SGPT) 39 Alkaline Phosphatase 198 H Total Protein 6.2 Albumin 2.5 L Globulin 3.70 H Albumin/Globulin Ratio 0.67 Medications Medications Current Medications Lorazepam (Ativan) 0.5 mg Q8H PRN PO ANXIETY Last administered on 03/29/17 01 :36; Admin Dose 0.5 MG; Start 03/23/17 at 19:00 Ondansetron HCl (Zofran Inj) 4 mg Q6H PRN IV NAUSEA AND/OR VOMITING; Start 03/28 at 19:00 Acetaminophen (Tylenol Tab) 650 mg Q6H PRN PO PAIN LEVEL 1-3 OR FEVER; Start 03/23/17 at 19:00 Acetaminophen/ Hydrocodone Bitart ([place] (5/325)) 1 tab Q6H PRN PO PAIN LEVEL 4 -6 Last administered on 03/25/17 17:21; Admin Dose 1 TAB; Start 03/23/17 at 19:00 Docusate Sodium (Colace) 100 mg Q12H PRN PO CONSTIPATION Last administered on 03/25/17 08:42; Admin Dose 100 MG; Start 03/23/17 at 19:00 Magnesium Hydroxide (Milk Of Mag) 30 ml DAILY PRN PO CONSTIPATION Last administered on 03/25/17 08:42; Admin Dose 30 ML; Start 03/23/17 at 19:00 Heparin Sodium (Porcine) 5000 unit 5,000 unit Q12 SC Last administered on 03/29 09:47; Admin Dose 5,000 UNIT; Start 03/23/17 at 21:00 Piperacillin Sod/ Tazobactam Sod (Zosyn 2.25gm/ 50ml (Pmx)) 50 ml @ 100 mls/hr Q6 IVPB Last administered on 03/29/17 12:52; Admin Dose 100 MLS/HR; Start at 12:00 Morphine Sulfate (Ms Contin (Er)) 15 mg BID PO Last administered on 03/28/17 21:21; Admin Dose 15 MG; Start 03/24/17 at 22:39 Loratadine (Claritin) 10 mg DAILY PO Last administered on 03/29/17 09:53; Admin Dose 10 MG; Start 03/25/17 at 09:00 Fluticasone Propionate (Flonase 0.05% Nasal) 1 spray DAILY NASAL Last administered on 03/29/17 09:48; Admin Dose 1 SPRAY; Start 03/25/17 at 09:00 Megestrol Acetate (Megace Susp) 800 mg DAILY PO Last administered on 09:52; Admin Dose 800 MG; Start 03/26/17 at 09:00 Lansoprazole (Prevacid) 30 mg BID@06,18 PO Last administered on 03/29/17 05: 40; Admin Dose 30 MG; Start 03/25/17 at 18:00 Silver Sulfadiazine (Thermazene 1% 25 Gm) 1 applic DAILY TOP Last administered on 03/29/17 09:48; Admin Dose 1 APPLIC; Start 03/26/17 at 09:00 Clonazepam (Klonopin) 0.5 mg TID PO Last administered on 03/29/17 12:52; Admin Dose 0.5 MG; Start 03/26/17 at 15:00 Metoprolol Tartrate (Lopressor) 50 mg BID PO Last administered on 03/29/17 09 :53; Admin Dose 50 MG; Start 03/28/17 at 21:00 Amlodipine Besylate (Norvasc) 2.5 mg DAILY PO Last administered on 03/29/17 09:52; Admin Dose 2.5 MG; Start 03/28/17 at 09:30 Methocarbamol (Robaxin) 500 mg BID PO Last administered on 03/29/17 09:52; Admin Dose 500 MG; Start 03/28/17 at 21:00 Lactulose (Enulose) 10 gm DAILY PO Last administered on 03/29/17 09:50; Admin Dose 10 GM; Start 03/28/17 at 10:30 KAILEY SETHI MD Mar 29, 2017 14:37
[2017-03-29] MEDS: HYDROCODONE/APAP (5/325) TAB PO PRN (18:13)
--- NOTE | 2017-03-29 20:06 | PN ---
DATE: 03/29/2017 SUBJECTIVE: Patient seen. Nursing staff could not place the NG tube. The patient is eating slight ly better. Breathing is slightly improved as well. Overall, we are very concerned. We are trying to limit the patient's narcotics. Case discussed with the patient's friend in detail. PHYSICAL EXAMINATION: VITAL SIGNS: Temperature is 98, pulse 77, respirations 20, blood pressure 129/86, saturation 90% to 91% on 2 liters. GENERAL: The patient is in no acute distress. The patient is very cachectic, frail, pale. HEENT: Temporal wasting. CARDIOVASCULAR: S1, S2. LUNGS: Decreased bilaterally. ABDOMEN: Soft. EXTREMITIES: No clubbing, cyanosis or edema. She has venous stasis and hyperpigmentation of the lo wer extremities secondary to peripheral vascular disease. LABORATORY DATA: White count improve to 12.6, hemoglobin 12.9, hematocrit 41, platelet count is 337 , neutrophils 72%, lymphocytes 15%. Chemistry: Sodium 145, potassium is low at 3.2, chloride 104, bicarbonate 33, BUN is 13, creatinine 0.78, glucose of 88, AST 33, ALT 39, alkaline phosphatase ____ _. MEDICATIONS: Include 1. Lopressor 50 b.i.d. 2. Robaxin 500 b.i.d. 3. Lactulose daily. 4. Norvasc 2.5 daily. 5. Klonopin 0.5 t.i.d. 6. Megace 800 daily. 7. Silvadene cream daily. 8. Prevacid 30 mg b.i.d. 9. Claritin 10 mg daily. 10. Flonase daily. 11. MS Contin b.i.d., which was discontinued. 12. Albuterol DuoNebs every 4 hours p.r.n. 13. Zosyn 3.375 IV q.6. 14. Heparin 5000 q. 12. 15. Ativan p.r.n. 16. Zofran p.r.n. 17. Tylenol p.r.n. 18. [place] p.r.n. 19. Colace. 20. Milk of magnesia p.r.n. ASSESSMENT: This is a very unfortunate 66-year-old female with history of severe emphysem a, chronic obstructive pulmonary disease, nicotine dependency, chronic pain syndrome, hypertension, psychiatric disorder, anemia, peripheral vascular disease, who presented with severe weight loss, wa s found to be septic, bacteremic, positive for urinary tract infection. Also, likely underlying pne umonia as well. 1. Respiratory: Continue supportive care, breathing treatment and aspiration precautions. 2. Cardiovascular: The patient is on heparin for deep vein thrombosis prophylaxis. Continue blood pressure medication as above. 3. Infectious disease: Patient with bacteremia. Organism is Streptococcus. Also in the urine. C ontinue Zosyn for 14 days. 4. Severe malnutrition. Continue Megace. The patient's p.o. intake improved. 5. Elevated carcinoembryonic antigen and severe weight loss. Definitely concerning for malignancy. Would recommend esophagogastroduodenoscopy and colonoscopy when more stable. Case discussed with Dr. James. 6. Acute renal failure, resolved with gentle hydration. 7. Psychiatric disorder. Continue with benzodiazepines as needed. 8. Rheumatoid arthritis. Pain control as needed. 9. Continue Prevacid. 10. Overall prognosis is not very good as her body mass index is 13.9 with a concern for malignancy . We will try to transfer to [facility] for further medical management as the ash ent is very fragile. Hospice may be an option. We will continue to monitor her progress. Attempt at nasogastric tube was unsuccessful, and we will continue to monitor the patient's p.o. intake for now. We will follow. Dictated By: ZACKARY ANGELA/YOJANA Conf#: [id number] DID#: [id number] CC: ZACKARY PRECIADO MD;*EndCC*
[2017-03-29] MEDS: ALBUTEROL/IPRATROPIUM (NEB) 3 ML AMP HHN PRN (21:44)
[2017-03-30] VITALS (13 sets, daily range): BP systolic 136–170; BP diastolic 80–94; PULSE 82–95; RESP 17–21
[2017-03-30] MEDS: PIPER-TAZO 2.25 GM (PMX) 50 ML IVPB SCH ×4 (00:19→17:46)
[2017-03-30] MEDS: ALBUTEROL/IPRATROPIUM (NEB) 3 ML AMP HHN PRN ×2 (04:04→20:25)
[2017-03-30] MEDS: LANSOPRAZOLE 30 MG CAP PO SCH ×2 (05:33→17:45)
--- NOTE | 2017-03-30 06:06 | RADRPT ---
PROCEDURE: Chest. CLINICAL INDICATION: Shortness of breath. TECHNIQUE: Single frontal view of the chest was obtained. COMPARISON: 03/23/2017. FINDINGS: The cardiac silhouette is within normal limits. The aortic arch is calcified. There is no focal co nsolidation, vascular congestion or pleural effusion. There is no pneumothorax. IMPRESSION: No evidence for active cardiopulmonary disease. Aortic atherosclerosis. .Bhavik Ram MD, MD Date Time Electronically viewed and signed by .Bhavik Ram MD, on 03/30/2017 06:05 .T/
[2017-03-30 06:27] LABS: AADO2 Arterial 118.6 mmHg (7.0-24.0); Allen Test ACCEPTAB; Arterial Base Excess 7.1 mmol/L (-3.0-3); Arterial COHb 1.3 % (0.0-3.0); Arterial Fraction of Oxyhgb 89.6 % (93.0-99.0); Arterial HCO3 31.9 mmol/L (22.0-26.0); Arterial MetHb 0 % (0.0-1.5); Arterial Total Hemglobin 11.7 g/dl (12.0-18.0); MODE NASAL CANNULA
[2017-03-30] MEDS: METHYLPREDNISOLONE 125 MG INJ IV SCH ×3 (06:36→21:53)
[2017-03-30] MEDS: LACTULOSE 30ML CUP PO SCH (09:00)
[2017-03-30 09:07] LABS: BASOPHIL # 0.1 10^3/ul (0.0-0.1); BASOPHILS % 0.4 % (0.0-2.0); HEMATOCRIT 39.8 % (37.0-47.0); HEMOGLOBIN 12.3 g/dl (12.0-16.0); LYMPHOCYTES # 1.1 10^3/ul (0.8-2.9); LYMPHOCYTES % 6.5 % (15.0-51.0); MEAN CORPUSCULAR HEMOGLOBIN 26.1 pg (29.0-33.0); MEAN CORPUSCULAR HGB CONC 30.9 g/dl (32.0-37.0); MEAN CORPUSCULAR VOLUME 84.5 fl (82.0-101.0); MEAN PLATELET VOLUME 10.1 fl (7.4-10.4); MONOCYTE # 0.8 10^3/ul (0.3-0.9); MONOCYTES % 4.6 % (0.0-11.0); NEUTROPHIL # 14.6 10^3/ul (1.6-7.5); NEUTROPHILS % 86.9 % (39.0-77.0); PLATELET COUNT 330 10^3/UL (140-415); RED BLOOD COUNT 4.71 10^6/ul (4.20-5.40); RED CELL DISTRIBUTION WIDTH 17.7 % (11.5-14.5); WHITE BLOOD COUNT 16.9 10^3/ul (4.8-10.8)
[2017-03-30 09:38] LABS: MAGNESIUM 1.7 mg/dl (1.7-2.5); PHOSPHORUS 3.3 mg/dl (2.5-4.9)
[2017-03-30] MEDS: MEGESTROL (40 MG/ML) 10ML CUP PO SCH (09:41)
[2017-03-30] MEDS: AMLODIPINE 2.5 MG TAB PO SCH (09:44)
[2017-03-30] MEDS: LORATADINE 10 MG TAB PO SCH (09:44)
[2017-03-30] MEDS: METOPROLOL 25 MG TAB PO SCH ×2 (09:46→21:52)
[2017-03-30] MEDS: METHOCARBAMOL 500 MG TAB PO SCH ×2 (09:47→21:51)
[2017-03-30] MEDS: clonAZEPAM 0.5 MG TAB PO SCH ×3 (09:48→21:51)
[2017-03-30 09:50] LABS: CALCIUM 8.5 mg/dl (8.4-10.2); CREATININE 0.81 mg/dl (0.44-1.00); POTASSIUM 3.8 mmol/L (3.5-5.1)
[2017-03-30] MEDS: HEPARIN 5,000 UNIT/0.5 ML VIAL SC SCH ×2 (09:51→21:54)
[2017-03-30] MEDS: SILVER SULFADIAZINE 1% 25 GM CR TOP SCH (09:53)
[2017-03-30] MEDS: FLUTICASONE 0.05% 16 GM NAS SPRAY NASAL SCH (09:53)
--- NOTE | 2017-03-30 10:47 | PN ---
DATE: 03/30/2017 SUBJECTIVE: Patient seen. Overnight, she had episodes of worsening shortness of breath. ABG was d one which showed a pH of 7.45, pCO2 of 46, pO2 of 63, bicarbonate of 32, saturation 91%. This was o n 33% FIO2. I started her on IV Solu-Medrol. White count did drop because of that this morning to 16.9 Otherwise, patient is breathing better today. Patient requesting a full diet with salt and but ter. She says she will not eat otherwise. We definitely want the patient to eat, as BMI is 13.9. We will liberalize her diet. PHYSICAL EXAMINATION: VITAL SIGNS: Temperature is 98, pulse 93, respirations 18, blood pressure 148/85, saturation 96% on 3 liters. GENERAL: The patient is very frail. Temporal wasting, pale. CARDIOVASCULAR: S1, S2. LUNGS: Clear but slightly tachypneic. ABDOMEN: Soft, nontender. EXTREMITIES: Improved to the lower extremities, less hyperpigmentation. The patient is overa ll very debilitated and weak. Her friend is at bedside. Case discussed as well. LABORATORY DATA: White count 16.9, hemoglobin 12.3, hematocrit 40, platelets 330, neutrophils 87%, lymphocytes 7%. Chemistry: Sodium 144, potassium 3.8, chloride 106, bicarbonate 28, BUN is 15, cre atinine 0.81, glucose of 80. Blood cultures on 03/27/2017 negative. Upon admission, she did have s trep bacteremia and UTI strep organism. MEDICATIONS: Reviewed. 1. Solu-Medrol 60 mg IV q.12h. 2. Lopressor 50 b.i.d. 3. Robaxin 500 b.i.d. 4. Lactulose daily. 5. Norvasc 2.5 daily. 6. Klonopin 0.5 t.i.d. 7. Megace 800 daily. 8. Silvadene cream daily. 9. Prevacid 20 mg b.i.d. 10. Claritin 10 mg daily. 11. Flonase daily. 12. DuoNeb as directed. 13. Zosyn 3.375 IV q.6h. 14. Heparin 5000 q.12. 15. Ativan p.r.n. 16. Zofran p.r.n. 17. Tylenol p.r.n. 18. Anna p.r.n. 19. Colace p.r.n. 20. Milk of magnesia p.r.n. ASSESSMENT AND PLAN: This is a 66-year-old female with history of severe emphysema, COPD, nicotine dependency, chronic pain syndrome, hypertension, psychiatric disorder, anemia, peripheral vascular disease, severe malnutrition very concerning for malignancy, who presents septic, bacteremi c, urinary tract infection. 1. Respiratory. The patient with history of chronic obstructive pulmonary disease. I added steroi ds because of labored breathing. Continue breathing treatment and oxygen support. Will consult pul monology as well. Continue aspiration precautions. 2. Cardiovascular. Continue deep venous thrombosis prophylaxis with heparin. Vitals are otherwise stable. 3. Infectious disease. The patient with bacteremia strep urinary tract infection, strep bacteremia . Continue Zosyn for a total of 14 days. 4. Severe malnutrition. Continue Megace. Liberalize her diet more. Continue Boost. 5. Elevated CEA in the setting of weight loss. Very concerning for malignancy. If stable, will be nefit from EGD and colonoscopy. Overall, because of her significant ongoing pulmonary condition, we ight loss, her prognosis is poor. 6. Acute renal failure, resolved with gentle hydration. 7. Psychiatric disorder, p.r.n. benzodiazepines. 8. Rheumatoid arthritis. Pain control as needed. 9. Continue Prevacid for gastritis. 10. Try to transfer to [facility] for further ongoing care, as patient with multip le issues. 11. Try to keep the patient comfortable. Case discussed with patient's friend. We will follow. Dictated By: ZACKARY ANGELA/YOJANA Conf#: [id number] DID#: [id number]
--- NOTE | 2017-03-30 11:57 | CONS ---
Date/Time of Note Date/Time of Note DATE: 03/30/17 TIME: 11:57 Consultation Date/Type/Reason Admit Date/Time Mar 23, 2017 at 18:39 Date of Consultation: Mar 30, 2017 Type of Consultation: Pulmonary Hx of Present Illness Pulmonary consult dictated [id number] Social History Smoking Status: Current some day smoker Exam/Review of Systems Vital Signs Vitals Vital Signs Date Time Temp Pulse Resp B/P Pulse Ox O2 Delivery O2 Flow Rate FiO2 03/30/17 08:05 98.0 93 18 148/85 96 03/30/17 04:06 Nasal Cannula 3.0 Intake and Output 03/29/17 03/29/17 03/30/17 15:00 23:00 07:00 Intake Total 240 ml 250 ml 300 ml Output Total 1500 ml 900 ml 700 ml Balance -1260 ml -650 ml -400 ml Results Result Diagram: 03/30/17 0814 03/30/17 0814 Results 24 hrs Laboratory Tests Test 03/30/17 05:37 03/30/17 08:14 Blood Gas Specimen Source Blood arterial Arterial Blood Date Drawn 03/30/2017 6:10:09 AM Arterial Blood pH (Temp corrected) 7.458 H Arterial Blood pCO2 (Temp correct) 46.1 H Arterial Blood pO2 (Temp corrected) 62.9 L Arterial Blood HCO3 31.9 H Arterial Blood Base Excess 7.1 H Arterial Blood Oxygen Saturation 90.8 L Gato Test ACCEPTAB Arterial Blood Gas Puncture Site Right HEEL Arterial Blood Carboxyhemoglobin 1.3 Arterial Blood Methemoglobin 0 Blood Gas A-a O2 Differential 118.6 H Oxyhemoglobin Percent 89.6 L Total Hemoglobin 11.7 L Blood Gas Temperature 37.0 Blood Gas Modality NASAL CANNULA FiO2 33.0 Blood Gas Notified Whom UP Blood Gas Notified Time 03/30/2017 6:26:46 AM White Blood Count 16.9 #H Red Blood Count 4.71 Hemoglobin 12.3 Hematocrit 39.8 Mean Corpuscular Volume 84.5 Mean Corpuscular Hemoglobin 26.1 L Mean Corpuscular Hemoglobin Concent 30.9 L Red Cell Distribution Width 17.7 H Platelet Count 330 Mean Platelet Volume 10.1 Neutrophils % 86.9 H Lymphocytes % 6.5 L Monocytes % 4.6 Eosinophils % 0.0 Basophils % 0.4 Nucleated Red Blood Cells % 0.0 Neutrophils # 14.6 H Lymphocytes # 1.1 Monocytes # 0.8 Eosinophils # 0.0 Basophils # 0.1 Nucleated Red Blood Cells # 0.0 Sodium Level 144 Potassium Level 3.8 Chloride Level 106 Carbon Dioxide Level 28 Anion Gap 14 Blood Urea Nitrogen 15 Creatinine 0.81 Glucose Level 80 Calcium Level 8.5 Phosphorus Level 3.3 Magnesium Level 1.7 Medications Medications Current Medications Lorazepam (Ativan) 0.5 mg Q8H PRN PO ANXIETY Last administered on 03/29/17 01 :36; Admin Dose 0.5 MG; Start 03/23/17 at 19:00 Ondansetron HCl (Zofran Inj) 4 mg Q6H PRN IV NAUSEA AND/OR VOMITING; Start 03/28 at 19:00 Acetaminophen (Tylenol Tab) 650 mg Q6H PRN PO PAIN LEVEL 1-3 OR FEVER; Start 03/23/17 at 19:00 Acetaminophen/ Hydrocodone Bitart ([place] (5/325)) 1 tab Q6H PRN PO PAIN LEVEL 4 -6 Last administered on 03/29/17 18:13; Admin Dose 1 TAB; Start 03/23/17 at 19:00 Docusate Sodium (Colace) 100 mg Q12H PRN PO CONSTIPATION Last administered on 03/25/17 08:42; Admin Dose 100 MG; Start 03/23/17 at 19:00 Magnesium Hydroxide (Milk Of Mag) 30 ml DAILY PRN PO CONSTIPATION Last administered on 03/25/17 08:42; Admin Dose 30 ML; Start 03/23/17 at 19:00 Heparin Sodium (Porcine) 5000 unit 5,000 unit Q12 SC Last administered on 03/30 09:51; Admin Dose 5,000 UNIT; Start 03/23/17 at 21:00 Piperacillin Sod/ Tazobactam Sod (Zosyn 2.25gm/ 50ml (Pmx)) 50 ml @ 100 mls/hr Q6 IVPB Last administered on 03/30/17 05:33; Admin Dose 100 MLS/HR; Start at 12:00 Loratadine (Claritin) 10 mg DAILY PO Last administered on 03/30/17 09:44; Admin Dose 10 MG; Start 03/25/17 at 09:00 Fluticasone Propionate (Flonase 0.05% Nasal) 1 spray DAILY NASAL Last administered on 03/30/17 09:53; Admin Dose 1 SPRAY; Start 03/25/17 at 09:00 Megestrol Acetate (Megace Susp) 800 mg DAILY PO Last administered on 09:41; Admin Dose 800 MG; Start 03/26/17 at 09:00 Lansoprazole (Prevacid) 30 mg BID@,18 PO Last administered on 03/30/17 05: 33; Admin Dose 30 MG; Start 03/25/17 at 18:00 Silver Sulfadiazine (Thermazene 1% 25 Gm) 1 applic DAILY TOP Last administered on 03/30/17 09:53; Admin Dose 1 APPLIC; Start 03/26/17 at 09:00 Clonazepam (Klonopin) 0.5 mg TID PO Last administered on 03/30/17 09:48; Admin Dose 0.5 MG; Start 03/26/17 at 15:00 Metoprolol Tartrate (Lopressor) 50 mg BID PO Last administered on 03/30/17 09 :46; Admin Dose 50 MG; Start 03/28/17 at 21:00 Amlodipine Besylate (Norvasc) 2.5 mg DAILY PO Last administered on 03/30/17 09:44; Admin Dose 2.5 MG; Start 03/28/17 at 09:30 Methocarbamol (Robaxin) 500 mg BID PO Last administered on 03/30/17 09:47; Admin Dose 500 MG; Start 03/28/17 at 21:00 Lactulose (Enulose) 10 gm DAILY PO Last administered on 03/29/17 09:50; Admin Dose 10 GM; Start 03/28/17 at 10:30 Methylprednisolone Sodium Succinate (Solu-Medrol) 60 mg Q12 IV Last administered on 03/30/17 09:57; Admin Dose 60 MG; Start 03/30/17 at 06:00 Morphine Sulfate (morphine) 5 mg Q3H PRN PO PAIN; Start 03/30/17 at 10:30 NAHID ZAVALA Mar 30, 2017 11:57
--- NOTE | 2017-03-30 12:29 | CONS ---
DATE OF ADMISSION: 03/23/2017 DATE OF CONSULTATION: 03/30/2017 REFERRING PHYSICIAN: Dr. Zackary Boles REASON FOR REFERRAL: Evaluation of shortness of breath. HISTORY OF PRESENT ILLNESS: Ms. Hutchinson is a 66-year-old lady who was admitted on 03/23/2017 with complaints of not feeling well with weight loss, low grade fever as well as shortness of breath. Upon evaluation, the patient was diagnosed with pneumonia and also has had positive blood cultures and has been started on appropriate antibiotic regimen. By the time I saw the patient, she was feeling better but still complains of chronic shortness of breath, which according to her has not changed significantly. The patient, however, denies any fever, chills, chest pain, wheezing, sputum production. PAST MEDICAL HISTORY: 1. History of chronic anemia. 2. Chronic pain syndrome. 3. Stable seizure disorder. 4. Hypertension. 5. Recurrent urinary tract infection. 6. History of questionable viral hepatitis. 7. Gastroesophageal reflux disease. 8. Allergic rhinitis. 9. C-spine and L-spine disk disease. 10. History of vocal cord paralysis. 11. Significant weight loss. PAST SURGICAL HISTORY: The patient is status post cholecystectomy, hysterectomy , multiple neck surgeries, as well as appendectomy. MEDICATIONS: 1. The patient is currently on Zosyn 3.375 grams q.6h. 2. Acetaminophen on a p.r.n. basis. 3. DuoNeb q.4h. 4. Amlodipine 2.5 mg a day. 5. Klonopin 0.5 mg t.i.d. 6. Colace 100 mg b.i.d. p.r.n. 7. Subcutaneous Heparin 5000 units q.12h. 8. Hydrocodone on a p.r.n. basis. 9. Prevacid 30 mg daily. 10. Claritin 10 mg a day. 11. Robaxin 500 mg b.i.d. 12. Solu-Medrol 50 mg q.12h. 13. Lopressor 50 mg b.i.d. 14. Morphine on a p.r.n. basis. 15. Potassium on a p.r.n. basis. ALLERGIES: SULFA DRUGS, CYCLOBENZAPRINE, DIAZEPAM, PHENOBARBITAL. SOCIAL HISTORY: The patient has a history of heavy smoking, about a pack a day. No history of drug abuse. FAMILY HISTORY: The patient is single. She does not have any children. OCCUPATIONAL HISTORY: Noncontributory. REVIEW OF SYSTEMS: Denies any headache, visual changes, sinus symptoms, postnasal drip, dysphagia, odynophagia. Complains of generalized weakness. Denies any wheezing, cough, sputum production. Denies any melena or hematochezia. Patient has lost weight. Denies any orthopnea. PHYSICAL EXAMINATION: GENERAL: Elderly woman, appears quite emaciated, currently in no distress. VITAL SIGNS: Temperature is 98 degree Fahrenheit, respiratory rate is 18 per minute, heart rate 92 per minute, blood pressure is 148/85, O2 sat 96% on 3 liter nasal cannula. HEENT: Supple neck, no JVD, no lymphadenopathy, midline trachea, no thyromegaly. Patient has had multiple carious teeth. Pupils are small bilaterally. CHEST: Diminished but clear breath sounds. No added sounds. HEART: S1, S2 audible. No murmurs, regular rhythm. ABDOMEN: Scaphoid. No organomegaly. Bowel sounds audible, nontender. EXTREMITIES: No edema. The patient has significant muscle loss involving the entire body. CENTRAL NERVOUS SYSTEM EXAMINATION: No focal deficit. LABORATORY DATA: Today sodium 144, potassium 3.8, chloride 106, bicarbonate 28 , BUN 14, creatinine 0.8. White count 16.9, hemoglobin 12.3, platelet count of 330. ABG done today on 3 liter nasal cannula, pH 7.45, pCO2 of 46, pO2 of 62, O2 sat of 93%. IMAGING: Chest x-ray was reviewed from 03/23/2017, which is showing severe emphysematous changes. The patient has positive blood cultures for alpha hemolytic strep species and urine culture positive for strep beta-hemolytic group F. ASSESSMENT: 1. Patient admitted with gram positive sepsis, currently on appropriate antibiotic regimen. 2. No distinct significant evidence of pneumonia. 3. Underlying severe chronic obstructive pulmonary disease. 4. Severe emaciation. 5. Multiple other comorbidities including chronic pain, hypertension, stable seizure disorder, chronic pain syndrome and chronic anemia. RECOMMENDATIONS: 1. Continue current treatment. The patient is a good [facility]. 2. Continue current antibiotics for at least a total of 10 days. Dictated By: NAHID HUERTA/YOJANA Conf#: [id number] DID#: [id number] CC: ZACKARY BOLES MD;*EndCC* MTDD
--- NOTE | 2017-03-30 19:46 | CONS ---
Date/Time of Note Date/Time of Note DATE: 03/30/17 TIME: 19:45 Assessment/Plan Assessment/Plan Additional Assessment/Plan IMPRESSION: 1. Bronchitis, and bronchiolitis with possible pneumonia. 2. Leukocytosis 3. Dehydration. 4. Weight loss. 5. Abdominal pain and nausea, vomiting. 6. Cachexia. 7. Emphysema. 8. Chronic neck pain. 9. Psychiatric disorder. 10. CEAs height 36.5 11. Patient is lethargic Plan Continue PPI Continue Megace Nutritional support either Ensure or Glucerna 1 can 3 times daily. Once he is more stable will proceed with the GI workup Patient p.o. intake is improved. Discussed with the staff nurse she is eating now more than 50%, will continue to observe Consultation Date/Type/Reason Admit Date/Time Mar 23, 2017 at 18:39 Type of Consultation: Pulmonary 24 HR Interval Summary Constitutional: improved Exam/Review of Systems Vital Signs Vitals Vital Signs Date Time Temp Pulse Resp B/P Pulse Ox O2 Delivery O2 Flow Rate FiO2 03/30/17 18:00 4.0 03/30/17 16:10 98.2 86 18 151/94 95 03/30/17 08:00 Nasal Cannula Intake and Output 03/29/17 03/29/17 03/30/17 15:00 23:00 07:00 Intake Total 240 ml 250 ml 300 ml Output Total 1500 ml 900 ml 700 ml Balance -1260 ml -650 ml -400 ml Exam Constitutional: alert, oriented, well developed Psych: nl mood/affect, no complaints Head: atraumatic, normocephalic Eyes: EOMI, PERRL, nl conjunctiva, nl lids, nl sclera ENMT: nl external ears & nose, nl lips & teeth, nl nasal mucosa & septum Neck: non-tender, supple Respiratory: clear to auscultation, normal air movement Cardiovascular: nl pulses, regular rate and rhythm Gastrointestinal: nl liver, spleen, non-tender, soft Musculoskeletal: nl extremities to inspection, nl gait and stance Extremities: normal pulses Neurological: QUARTER DOPER II-XII intact, nl mental status, nl speech, nl strength Skin: nl turgor, No rash or lesions Lymph: nl lymph nodes Results Result Diagram: 03/30/17 0814 03/30/17 0814 Results 24 hrs Laboratory Tests Test 03/30/17 05:37 03/30/17 08:14 Blood Gas Specimen Source Blood arterial Arterial Blood Date Drawn 03/30/2017 6:10:09 AM Arterial Blood pH (Temp corrected) 7.458 H Arterial Blood pCO2 (Temp correct) 46.1 H Arterial Blood pO2 (Temp corrected) 62.9 L Arterial Blood HCO3 31.9 H Arterial Blood Base Excess 7.1 H Arterial Blood Oxygen Saturation 90.8 L Gato Test ACCEPTAB Arterial Blood Gas Puncture Site Right HEEL Arterial Blood Carboxyhemoglobin 1.3 Arterial Blood Methemoglobin 0 Blood Gas A-a O2 Differential 118.6 H Oxyhemoglobin Percent 89.6 L Total Hemoglobin 11.7 L Blood Gas Temperature 37.0 Blood Gas Modality NASAL CANNULA FiO2 33.0 Blood Gas Notified Whom UP Blood Gas Notified Time 03/30/2017 6:26:46 AM White Blood Count 16.9 #H Red Blood Count 4.71 Hemoglobin 12.3 Hematocrit 39.8 Mean Corpuscular Volume 84.5 Mean Corpuscular Hemoglobin 26.1 L Mean Corpuscular Hemoglobin Concent 30.9 L Red Cell Distribution Width 17.7 H Platelet Count 330 Mean Platelet Volume 10.1 Neutrophils % 86.9 H Lymphocytes % 6.5 L Monocytes % 4.6 Eosinophils % 0.0 Basophils % 0.4 Nucleated Red Blood Cells % 0.0 Neutrophils # 14.6 H Lymphocytes # 1.1 Monocytes # 0.8 Eosinophils # 0.0 Basophils # 0.1 Nucleated Red Blood Cells # 0.0 Sodium Level 144 Potassium Level 3.8 Chloride Level 106 Carbon Dioxide Level 28 Anion Gap 14 Blood Urea Nitrogen 15 Creatinine 0.81 Glucose Level 80 Calcium Level 8.5 Phosphorus Level 3.3 Magnesium Level 1.7 Medications Medications Current Medications Lorazepam (Ativan) 0.5 mg Q8H PRN PO ANXIETY Last administered on 03/29/17t 01 :36; Admin Dose 0.5 MG; Start 03/23/17 at 19:00 Ondansetron HCl (Zofran Inj) 4 mg Q6H PRN IV NAUSEA AND/OR VOMITING; Start 03/28 at 19:00 Acetaminophen (Tylenol Tab) 650 mg Q6H PRN PO PAIN LEVEL 1-3 OR FEVER; Start 03/23/17 at 19:00 Acetaminophen/ Hydrocodone Bitart ([place] (5/325)) 1 tab Q6H PRN PO PAIN LEVEL 4 -6 Last administered on 03/29/17 18:13; Admin Dose 1 TAB; Start 03/23/17 at 19:00 Docusate Sodium (Colace) 100 mg Q12H PRN PO CONSTIPATION Last administered on 03/25/17 08:42; Admin Dose 100 MG; Start 03/23/17 at 19:00 Magnesium Hydroxide (Milk Of Mag) 30 ml DAILY PRN PO CONSTIPATION Last administered on 03/25/17 08:42; Admin Dose 30 ML; Start 03/23/17 at 19:00 Heparin Sodium (Porcine) 5000 unit 5,000 unit Q12 SC Last administered on 03/30 09:51; Admin Dose 5,000 UNIT; Start 03/23/17 at 21:00 Piperacillin Sod/ Tazobactam Sod (Zosyn 2.25gm/ 50ml (Pmx)) 50 ml @ 100 mls/hr Q6 IVPB Last administered on 03/30/17 17:46; Admin Dose 100 MLS/HR; Start at 12:00 Loratadine (Claritin) 10 mg DAILY PO Last administered on 03/30/17 09:44; Admin Dose 10 MG; Start 03/25/17 at 09:00 Fluticasone Propionate (Flonase 0.05% Nasal) 1 spray DAILY NASAL Last administered on 03/30/17 09:53; Admin Dose 1 SPRAY; Start 03/25/17 at 09:00 Megestrol Acetate (Megace Susp) 800 mg DAILY PO Last administered on 09:41; Admin Dose 800 MG; Start 03/26/17 at 09:00 Lansoprazole (Prevacid) 30 mg BID@06,18 PO Last administered on 03/30/17 17: 45; Admin Dose 30 MG; Start 03/25/17 at 18:00 Silver Sulfadiazine (Thermazene 1% 25 Gm) 1 applic DAILY TOP Last administered on 03/30/17 09:53; Admin Dose 1 APPLIC; Start 03/26/17 at 09:00 Clonazepam (Klonopin) 0.5 mg TID PO Last administered on 03/30/17 12:34; Admin Dose 0.5 MG; Start 03/26/17 at 15:00 Metoprolol Tartrate (Lopressor) 50 mg BID PO Last administered on 03/30/17 09 :46; Admin Dose 50 MG; Start 03/28/17 at 21:00 Amlodipine Besylate (Norvasc) 2.5 mg DAILY PO Last administered on 03/30/17 09:44; Admin Dose 2.5 MG; Start 03/28/17 at 09:30 Methocarbamol (Robaxin) 500 mg BID PO Last administered on 03/30/17 09:47; Admin Dose 500 MG; Start 03/28/17 at 21:00 Lactulose (Enulose) 10 gm DAILY PO Last administered on 03/29/17 09:50; Admin Dose 10 GM; Start 03/28/17 at 10:30 Methylprednisolone Sodium Succinate (Solu-Medrol) 60 mg Q12 IV Last administered on 03/30/17 09:57; Admin Dose 60 MG; Start 03/30/17 at 06:00 Morphine Sulfate (morphine) 5 mg Q3H PRN PO PAIN; Start 03/30/17 at 10:30 KAILEY SETHI MD Mar 30, 2017 19:46
[2017-03-31] VITALS (12 sets, daily range): BP systolic 132–184; BP diastolic 64–91; PULSE 70–100; RESP 16–20
[2017-03-31] MEDS: PIPER-TAZO 2.25 GM (PMX) 50 ML IVPB SCH ×4 (00:22→18:11)
[2017-03-31] MEDS: LANSOPRAZOLE 30 MG CAP PO SCH ×2 (06:45→18:11)
[2017-03-31] MEDS: LACTULOSE 30ML CUP PO SCH (09:00)
[2017-03-31] MEDS: clonAZEPAM 0.5 MG TAB PO SCH ×3 (09:33→21:35)
[2017-03-31] MEDS: LORATADINE 10 MG TAB PO SCH (09:34)
[2017-03-31] MEDS: AMLODIPINE 2.5 MG TAB PO SCH (09:34)
[2017-03-31] MEDS: METOPROLOL 25 MG TAB PO SCH ×2 (09:35→21:36)
[2017-03-31] MEDS: METHOCARBAMOL 500 MG TAB PO SCH ×2 (09:35→21:39)
[2017-03-31] MEDS: HEPARIN 5,000 UNIT/0.5 ML VIAL SC SCH ×2 (09:36→21:43)
[2017-03-31] MEDS: MEGESTROL (40 MG/ML) 10ML CUP PO SCH (09:36)
[2017-03-31] MEDS: METHYLPREDNISOLONE 125 MG INJ IV SCH (09:36)
[2017-03-31] MEDS: SILVER SULFADIAZINE 1% 25 GM CR TOP SCH (09:37)
[2017-03-31] MEDS: FLUTICASONE 0.05% 16 GM NAS SPRAY NASAL SCH (09:37)
[2017-03-31 10:12] LABS: ABNORMAL IP MESSAGE 1; BASOPHIL # 0.1 10^3/ul (0.0-0.1); BASOPHILS % 0.3 % (0.0-2.0); HEMATOCRIT 37.1 % (37.0-47.0); HEMOGLOBIN 11.8 g/dl (12.0-16.0); LYMPHOCYTES # 1.3 10^3/ul (0.8-2.9); LYMPHOCYTES % 5.3 % (15.0-51.0); MEAN CORPUSCULAR HEMOGLOBIN 26.5 pg (29.0-33.0); MEAN CORPUSCULAR HGB CONC 31.8 g/dl (32.0-37.0); MEAN CORPUSCULAR VOLUME 83.4 fl (82.0-101.0); MEAN PLATELET VOLUME 9.8 fl (7.4-10.4); MONOCYTE # 1.3 10^3/ul (0.3-0.9); MONOCYTES % 5.6 % (0.0-11.0); NEUTROPHILS % 87.9 % (39.0-77.0); PLATELET COUNT 351 10^3/UL (140-415); RED BLOOD COUNT 4.45 10^6/ul (4.20-5.40); RED CELL DISTRIBUTION WIDTH 17.4 % (11.5-14.5); WHITE BLOOD COUNT 23.8 10^3/ul (4.8-10.8)
[2017-03-31 10:44] LABS: PHOSPHORUS 3.3 mg/dl (2.5-4.9)
[2017-03-31 10:52] LABS: CALCIUM 8.6 mg/dl (8.4-10.2); CREATININE 0.66 mg/dl (0.44-1.00); POTASSIUM 3.2 mmol/L (3.5-5.1)
--- NOTE | 2017-03-31 10:55 | CONS ---
Date/Time of Note Date/Time of Note DATE: 03/31/17 TIME: 10:53 Assessment/Plan Assessment/Plan Chief Complaint/Hosp Course Pulmonary consult dictated [id number] Problems: Additional Assessment/Plan Assessment and recommendations; 1. Patient admitted with COPD exacerbation as well as bilateral bronchopneumonia with interval improvement. 2. Multiple other comorbidities including history of hypertension, seizures, depression, neuropathy and chronic pain syndrome. 3. Scoliosis. Continue current treatment. Consider discharge to senior care. Consultation Date/Type/Reason Admit Date/Time Mar 23, 2017 at 18:39 Initial Consult Date 03/30/17 Type of Consultation: Pulmonary 24 HR Interval Summary Free Text/Dictation Patient's condition has improved. According to her she breathes much better if she sits up straight in bed. Chest pain, fever, wheezing or any sputum production. General exam; elderly woman, appears very emaciated, currently in no distress. Awake and alert. Exam/Review of Systems Vital Signs Vitals Vital Signs Date Time Temp Pulse Resp B/P Pulse Ox O2 Delivery O2 Flow Rate FiO2 03/31/17 09:28 4.0 03/31/17 08:26 70 03/31/17 07:36 98.4 18 184/91 91 03/30/17 20:25 Nasal Cannula Intake and Output 03/30/17 03/30/17 03/31/17 15:00 23:00 07:00 Intake Total 200 ml Output Total 900 ml 450 ml Balance -700 ml -450 ml Exam HEENT exam; supple neck, no JVD. No lymphadenopathy. Midline trachea. No thyromegaly. Patient has a multiple carious teeth. Chest exam; diminished but clear breath sounds. S1-S2 audible, no murmurs. Regular rhythm. Abdomen exam; soft, scaphoid. Nontender. No organomegaly. Bowel sounds audible. Extremity exam; no edema. No clubbing. PERFORMANCE CONSULTANT exam; no focal motor deficit. Patient however exhibiting generalized weakness. Results Result Diagram: 03/31/17 0952 03/30/17 0814 Results 24 hrs Laboratory Tests Test 03/31/17 09:52 White Blood Count 23.8 #H Red Blood Count 4.45 Hemoglobin 11.8 L Hematocrit 37.1 Mean Corpuscular Volume 83.4 Mean Corpuscular Hemoglobin 26.5 L Mean Corpuscular Hemoglobin Concent 31.8 L Red Cell Distribution Width 17.4 H Platelet Count 351 Mean Platelet Volume 9.8 Neutrophils % 87.9 H Lymphocytes % 5.3 L Monocytes % 5.6 Eosinophils % 0.0 Basophils % 0.3 Nucleated Red Blood Cells % 0.0 Neutrophils # 21.0 H Lymphocytes # 1.3 Monocytes # 1.3 H Eosinophils # 0.0 Basophils # 0.1 Nucleated Red Blood Cells # 0.0 Phosphorus Level 3.3 Magnesium Level 2.0 Medications Medications Current Medications Lorazepam (Ativan) 0.5 mg Q8H PRN PO ANXIETY Last administered on 03/29/17 01 :36; Admin Dose 0.5 MG; Start 03/23/17 at 19:00 Ondansetron HCl (Zofran Inj) 4 mg Q6H PRN IV NAUSEA AND/OR VOMITING; Start 03/28 at 19:00 Acetaminophen (Tylenol Tab) 650 mg Q6H PRN PO PAIN LEVEL 1-3 OR FEVER; Start 03/23/17 at 19:00 Acetaminophen/ Hydrocodone Bitart ([place] (5/325)) 1 tab Q6H PRN PO PAIN LEVEL 4 -6 Last administered on 03/29/17 18:13; Admin Dose 1 TAB; Start 03/23/17 at 19:00 Docusate Sodium (Colace) 100 mg Q12H PRN PO CONSTIPATION Last administered on 03/25/17 08:42; Admin Dose 100 MG; Start 03/23/17 at 19:00 Magnesium Hydroxide (Milk Of Mag) 30 ml DAILY PRN PO CONSTIPATION Last administered on 03/25/17 08:42; Admin Dose 30 ML; Start 03/23/17 at 19:00 Heparin Sodium (Porcine) 5000 unit 5,000 unit Q12 SC Last administered on 03/31 09:36; Admin Dose 5,000 UNIT; Start 03/23/17 at 21:00 Piperacillin Sod/ Tazobactam Sod (Zosyn 2.25gm/ 50ml (Pmx)) 50 ml @ 100 mls/hr Q6 IVPB Last administered on 03/31/17 06:45; Admin Dose 100 MLS/HR; Start at 12:00 Loratadine (Claritin) 10 mg DAILY PO Last administered on 03/31/17 09:34; Admin Dose 10 MG; Start 03/25/17 at 09:00 Fluticasone Propionate (Flonase 0.05% Nasal) 1 spray DAILY NASAL Last administered on 03/31/17 09:37; Admin Dose 1 SPRAY; Start 03/25/17 at 09:00 Megestrol Acetate (Megace Susp) 800 mg DAILY PO Last administered on 09:36; Admin Dose 800 MG; Start 03/26/17 at 09:00 Lansoprazole (Prevacid) 30 mg BID@18 PO Last administered on 03/31/17 06: 45; Admin Dose 30 MG; Start 03/25/17 at 18:00 Silver Sulfadiazine (Thermazene 1% 25 Gm) 1 applic DAILY TOP Last administered on 03/31/17 09:37; Admin Dose 1 APPLIC; Start 03/26/17 at 09:00 Clonazepam (Klonopin) 0.5 mg TID PO Last administered on 03/31/17 09:33; Admin Dose 0.5 MG; Start 03/26/17 at 15:00 Metoprolol Tartrate (Lopressor) 50 mg BID PO Last administered on 03/31/17 09 :35; Admin Dose 50 MG; Start 03/28/17 at 21:00 Amlodipine Besylate (Norvasc) 2.5 mg DAILY PO Last administered on 03/31/17 09:34; Admin Dose 2.5 MG; Start 03/28/17 at 09:30 Methocarbamol (Robaxin) 500 mg BID PO Last administered on 03/31/17 09:35; Admin Dose 500 MG; Start 03/28/17 at 21:00 Lactulose (Enulose) 10 gm DAILY PO Last administered on 03/29/17 09:50; Admin Dose 10 GM; Start 03/28/17 at 10:30 Methylprednisolone Sodium Succinate (Solu-Medrol) 60 mg Q12 IV Last administered on 03/31/17 09:36; Admin Dose 60 MG; Start 03/30/17 at 06:00 Morphine Sulfate (morphine) 5 mg Q3H PRN PO PAIN; Start 03/30/17 at 10:30 NAHID ZAVALA Mar 31, 2017 10:55
[2017-03-31] MEDS: ALBUTEROL/IPRATROPIUM (NEB) 3 ML AMP HHN PRN (12:40)
[2017-03-31] MEDS ORDERED: POTASSIUM CHLORIDE (SR) 20 MEQ TAB PO STA (14:07)
[2017-03-31] MEDS: ALBUTEROL/IPRATROPIUM (NEB) 3 ML AMP HHN SCH ×2 (16:43→20:01)
[2017-03-31] MEDS: HYDROCODONE/APAP (5/325) TAB PO PRN (17:09)
--- NOTE | 2017-03-31 17:29 | CONS ---
Date/Time of Note Date/Time of Note DATE: 03/31/17 TIME: 17:28 Assessment/Plan Assessment/Plan Additional Assessment/Plan Assessment/Plan Additional Assessment/Plan IMPRESSION: 1. Bronchitis, and bronchiolitis with possible pneumonia. 2. Leukocytosis 3. Dehydration. 4. Weight loss. 5. Abdominal pain and nausea, vomiting. 6. Cachexia. 7. Emphysema. 8. Chronic neck pain. 9. Psychiatric disorder. 10. CEAs height 36.5 #11 leukocytosis Plan Continue PPI Continue Megace Nutritional support either Ensure or Glucerna 1 can 3 times daily. Once he is more stable will proceed with the GI workup Patient p.o. intake is improved. Discussed with the staff nurse she is eating now more than 50%, will continue to observe Continue antibiotic as per ID Consultation Date/Type/Reason Admit Date/Time Mar 23, 2017 at 18:39 Type of Consultation: Pulmonary 24 HR Interval Summary Constitutional: improved, poor po Exam/Review of Systems Vital Signs Vitals Vital Signs Date Time Temp Pulse Resp B/P Pulse Ox O2 Delivery O2 Flow Rate FiO2 03/31/17 16:43 26 93 Nasal Cannula 6.0 03/31/17 16:18 78 03/31/17 15:45 98.6 156/76 Intake and Output 03/30/17 03/30/17 03/31/17 14:59 22:59 06:59 Intake Total 200 ml Output Total 900 ml 450 ml Balance -700 ml -450 ml Exam Constitutional: alert, oriented, well developed Psych: nl mood/affect, no complaints Head: atraumatic, normocephalic Eyes: EOMI, PERRL, nl conjunctiva, nl lids, nl sclera ENMT: nl external ears & nose, nl lips & teeth, nl nasal mucosa & septum Neck: non-tender, supple Respiratory: clear to auscultation, normal air movement Cardiovascular: nl pulses, regular rate and rhythm Gastrointestinal: nl liver, spleen, non-tender, soft Musculoskeletal: nl extremities to inspection, nl gait and stance Extremities: normal pulses Neurological: 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 II-XII intact, nl mental status, nl speech, nl strength Skin: nl turgor, No rash or lesions Lymph: nl lymph nodes Results Result Diagram: 03/31/17 0952 03/31/17 0952 Results 24 hrs Laboratory Tests Test 03/31/17 09:52 White Blood Count 23.8 #H Red Blood Count 4.45 Hemoglobin 11.8 L Hematocrit 37.1 Mean Corpuscular Volume 83.4 Mean Corpuscular Hemoglobin 26.5 L Mean Corpuscular Hemoglobin Concent 31.8 L Red Cell Distribution Width 17.4 H Platelet Count 351 Mean Platelet Volume 9.8 Neutrophils % 87.9 H Lymphocytes % 5.3 L Monocytes % 5.6 Eosinophils % 0.0 Basophils % 0.3 Nucleated Red Blood Cells % 0.0 Neutrophils # 21.0 H Lymphocytes # 1.3 Monocytes # 1.3 H Eosinophils # 0.0 Basophils # 0.1 Nucleated Red Blood Cells # 0.0 Sodium Level 149 H Potassium Level 3.2 L Chloride Level 106 Carbon Dioxide Level 33 H Anion Gap 13 Blood Urea Nitrogen 18 Creatinine 0.66 Glucose Level 106 Calcium Level 8.6 Phosphorus Level 3.3 Magnesium Level 2.0 Medications Medications Current Medications Lorazepam (Ativan) 0.5 mg Q8H PRN PO ANXIETY Last administered on 03/29/17 01 :36; Admin Dose 0.5 MG; Start 03/23/17 at 19:00 Ondansetron HCl (Zofran Inj) 4 mg Q6H PRN IV NAUSEA AND/OR VOMITING; Start 03/28 at 19:00 Acetaminophen (Tylenol Tab) 650 mg Q6H PRN PO PAIN LEVEL 1-3 OR FEVER; Start 03/23/17 at 19:00 Acetaminophen/ Hydrocodone Bitart ([place] (5/325)) 1 tab Q6H PRN PO PAIN LEVEL 4 -6 Last administered on 03/31/17 17:09; Admin Dose 1 TAB; Start 03/23/17 at 19:00 Docusate Sodium (Colace) 100 mg Q12H PRN PO CONSTIPATION Last administered on 03/25/17 08:42; Admin Dose 100 MG; Start 03/23/17 at 19:00 Magnesium Hydroxide (Milk Of Mag) 30 ml DAILY PRN PO CONSTIPATION Last administered on 03/25/17 08:42; Admin Dose 30 ML; Start 03/23/17 at 19:00 Heparin Sodium (Porcine) 5000 unit 5,000 unit Q12 SC Last administered on 03/31 09:36; Admin Dose 5,000 UNIT; Start 03/23/17 at 21:00 Piperacillin Sod/ Tazobactam Sod (Zosyn 2.25gm/ 50ml (Pmx)) 50 ml @ 100 mls/hr Q6 IVPB Last administered on 03/31/17 12:27; Admin Dose 100 MLS/HR; Start at 12:00 Loratadine (Claritin) 10 mg DAILY PO Last administered on 03/31/17 09:34; Admin Dose 10 MG; Start 03/25/17 at 09:00 Fluticasone Propionate (Flonase 0.05% Nasal) 1 spray DAILY NASAL Last administered on 03/31/17 09:37; Admin Dose 1 SPRAY; Start 03/25/17 at 09:00 Megestrol Acetate (Megace Susp) 800 mg DAILY PO Last administered on 09:36; Admin Dose 800 MG; Start 03/26/17 at 09:00 Lansoprazole (Prevacid) 30 mg BID@06,18 PO Last administered on 03/31/17 06: 45; Admin Dose 30 MG; Start 03/25/17 at 18:00 Silver Sulfadiazine (Thermazene 1% 25 Gm) 1 applic DAILY TOP Last administered on 03/31/17 09:37; Admin Dose 1 APPLIC; Start 03/26/17 at 09:00 Clonazepam (Klonopin) 0.5 mg TID PO Last administered on 03/31/17 12:31; Admin Dose 0.5 MG; Start 03/26/17 at 15:00 Metoprolol Tartrate (Lopressor) 50 mg BID PO Last administered on 03/31/17 09 :35; Admin Dose 50 MG; Start 03/28/17 at 21:00 Methocarbamol (Robaxin) 500 mg BID PO Last administered on 03/31/17 09:35; Admin Dose 500 MG; Start 03/28/17 at 21:00 Lactulose (Enulose) 10 gm DAILY PO Last administered on 03/29/17 09:50; Admin Dose 10 GM; Start 03/28/17 at 10:30 Morphine Sulfate (morphine) 5 mg Q3H PRN PO PAIN; Start 03/30/17 at 10:30 Methylprednisolone Sodium Succinate (Solu-Medrol) 40 mg Q12 IV ; Start at 21:00 Amlodipine Besylate (Norvasc) 5 mg DAILY PO ; Start 04/01/17 at 09:00 KAILEY SETHI MD Mar 31, 2017 17:28
--- NOTE | 2017-03-31 20:40 | PN ---
DATE: 03/31/2017 SUBJECTIVE: Patient is seen, remains very weak but feels slightly better. White count went up to 2 4,000 but patient was started recently on IV steroids. This may be due to that. The patient does h ave loose stools as described by her friend at bedside. We will check stool for C. diff as well. T he patient otherwise blood pressure remains slightly high. PHYSICAL EXAMINATION: VITAL SIGNS: Temperature 97.2, pulse 79, respirations 19 to 27, blood pressure 167/80, saturation 9 4% to 98% on 4-6 liters. GENERAL: The patient is very frail. Very cachectic, frail, pale. CARDIOVASCULAR: S1 and S2. LUNGS: Decreased bilaterally. ABDOMEN: Soft, nontender. EXTREMITIES: No clubbing, cyanosis, or edema. Below the mid tibia bilaterally there is hyperpigmen tation LABORATORY DATA: White count is 23.8, hemoglobin 11.8, hematocrit 37, platelet count 351, neutrophi ls 88%, lymphocytes 5%. Chemistry: Sodium is 149, potassium is low at 3.2, chloride 106, bicarbona te 33, BUN is 18, creatinine 0.66, glucose of 106. Repeat blood cultures are negative, but urine cu lture and blood culture upon presentation shows strep. MEDICATIONS: 1. Reviewed morphine 5 mg orally q.3h. p.r.n. 2. Solu-Medrol 60 mg q.12h. 3. Lopressor 50 b.i.d. 4. Robaxin 500 b.i.d. 5. Lactulose daily, which may be discontinued. 6. Norvasc 2.5 mg daily. 7. Klonopin 0.5 t.i.d. 8. Megace 800 daily. 9. Silvadene daily. 10. Prevacid 20 mg daily. 11. Claritin 10 mg daily. 12. Flonase 1 spray daily. 13. DuoNeb every 4 hours p.r.n. 14. Zosyn 3.375 q.6h. 15. Heparin 5000 q.12h. 16. Ativan. 17. Zofran. 18. Tylenol. 19. [place]. 20. Colace. 21. Milk of magnesia as directed. ASSESSMENT AND PLAN: This is a 66-year-old female with history of severe emphysema, COPD, nicotine dependency, chronic pain syndrome, hypertension, psychiatric disorder, peripheral vascular disease, severe malnutrition very concerning for malignancy, who presents septic bacteremic with ur inary tract infection. 1. Respiratory. Continue breathing treatment as definitely provide the support. Continue steroids but will taper down to Solu-Medrol 40 mg IV q.12., Continue pulmonary care, breathing treatments a nd O2 support. 2. Cardiovascular. The patient's blood pressure is high, increase amlodipine to 5 mg daily. 3. Infectious disease. The patient with urinary tract infection and bacteremia. Continue Zosyn. We will check stool for occult blood. 4. Severe malnutrition, on Megace. Liberalize her diet. Continue Boost. 5. Elevated CEA in the setting of weight loss very concerning for possible gastrointestinal maligna ncy. Diagnosis procedure is stable. Dr. Chen is following. 6. Acute renal failure. Stable. 7. Psychiatric disorder. Continue p.r.n. benzodiazepines. 8. Rheumatoid arthritis. Pain control as needed. 9. Overall very debilitated. Physical therapy as tolerated. The patient may benefit from ongoing care in [facility], and hospice is also an option as the patient's overall long-ter m is not very good. We will follow. Dictated By: ZACKARY ANGELA/YOJANA Conf#: [id number] DID#: [id number] CC: LISE VO MD;*End*
[2017-03-31] MEDS: METHYLPREDNISOLONE 40 MG INJ IV SCH (21:35)
[2017-04-01] VITALS (8 sets, daily range): BP systolic 115–125; BP diastolic 68–79; PULSE 83–95; RESP 18–19
[2017-04-01] MEDS: PIPER-TAZO 2.25 GM (PMX) 50 ML IVPB SCH ×5 (01:34→18:17)
[2017-04-01] MEDS: ALBUTEROL/IPRATROPIUM (NEB) 3 ML AMP HHN PRN (02:48)
[2017-04-01] MEDS: morphine LIQ (10 MG/5 ML) CUP PO PRN ×2 (02:57→05:39)
[2017-04-01] MEDS: LANSOPRAZOLE 30 MG CAP PO SCH ×2 (05:38→18:17)
[2017-04-01 07:43] LABS: BASOPHIL # 0.1 10^3/ul (0.0-0.1); BASOPHILS % 0.3 % (0.0-2.0); HEMATOCRIT 38.7 % (37.0-47.0); HEMOGLOBIN 11.7 g/dl (12.0-16.0); LYMPHOCYTES # 0.9 10^3/ul (0.8-2.9); LYMPHOCYTES % 5.3 % (15.0-51.0); MEAN CORPUSCULAR HEMOGLOBIN 25.9 pg (29.0-33.0); MEAN CORPUSCULAR HGB CONC 30.2 g/dl (32.0-37.0); MEAN CORPUSCULAR VOLUME 85.8 fl (82.0-101.0); MEAN PLATELET VOLUME 10.2 fl (7.4-10.4); MONOCYTE # 0.9 10^3/ul (0.3-0.9); MONOCYTES % 5.3 % (0.0-11.0); NEUTROPHIL # 15.1 10^3/ul (1.6-7.5); NEUTROPHILS % 88.2 % (39.0-77.0); PLATELET COUNT 348 10^3/UL (140-415); RED BLOOD COUNT 4.51 10^6/ul (4.20-5.40); RED CELL DISTRIBUTION WIDTH 17.4 % (11.5-14.5); WHITE BLOOD COUNT 17.1 10^3/ul (4.8-10.8)
[2017-04-01 08:04] LABS: MAGNESIUM 2.2 mg/dl (1.7-2.5); PHOSPHORUS 3.1 mg/dl (2.5-4.9)
[2017-04-01 08:14] LABS: CALCIUM 8.4 mg/dl (8.4-10.2); CREATININE 0.74 mg/dl (0.44-1.00); POTASSIUM 3.7 mmol/L (3.5-5.1)
[2017-04-01] MEDS: SILVER SULFADIAZINE 1% 25 GM CR TOP SCH (09:00)
[2017-04-01] MEDS: FLUTICASONE 0.05% 16 GM NAS SPRAY NASAL SCH (09:00)
[2017-04-01] MEDS ORDERED: AMLODIPINE 5 MG TAB PO SCH (09:00)
[2017-04-01] MEDS: ALBUTEROL/IPRATROPIUM (NEB) 3 ML AMP HHN SCH ×3 (09:09→16:59)
[2017-04-01] MEDS: METHYLPREDNISOLONE 40 MG INJ IV SCH (09:16)
[2017-04-01] MEDS: LACTULOSE 30ML CUP PO SCH (09:17)
[2017-04-01] MEDS: clonAZEPAM 0.5 MG TAB PO SCH ×2 (09:17→13:16)
[2017-04-01] MEDS: LORATADINE 10 MG TAB PO SCH (09:17)
[2017-04-01] MEDS: METHOCARBAMOL 500 MG TAB PO SCH (09:18)
[2017-04-01] MEDS: METOPROLOL 25 MG TAB PO SCH (09:18)
[2017-04-01] MEDS: MEGESTROL (40 MG/ML) 10ML CUP PO SCH (09:18)
[2017-04-01] MEDS: HEPARIN 5,000 UNIT/0.5 ML VIAL SC SCH (09:33)
--- NOTE | 2017-04-01 12:05 | CONS ---
Date/Time of Note Date/Time of Note DATE: 04/01/17 TIME: 12:03 Assessment/Plan Assessment/Plan Chief Complaint/Hosp Course Pulmonary consult dictated [id number] Problems: Additional Assessment/Plan Assessment and recommendations; 1. Patient admitted with COPD exacerbation and bilateral bronchopneumonia with interval improvement. 2. Chronic type II respiratory failure. 3. Other comorbidities including hypertension, chronic pain syndrome, seizure disorder and severe arthritis. Continue current treatment. Patient would benefit from transfer to pulmonary rehab center. Consultation Date/Type/Reason Admit Date/Time Mar 23, 2017 at 18:39 Initial Consult Date 03/30/17 Type of Consultation: Pulmonary 24 HR Interval Summary Free Text/Dictation Patient's condition is stable. Complains of occasional shortness of breath. Denies any chest pain. Denies any wheezing or sputum production. General exam; elderly female, appears quite emaciated. Awake and alert. Currently in no distress. Exam/Review of Systems Vital Signs Vitals Vital Signs Date Time Temp Pulse Resp B/P Pulse Ox O2 Delivery O2 Flow Rate FiO2 04/01/17 09:17 Nasal Cannula 6.0 04/01/17 09:09 96 04/01/17 09:09 78 22 04/01/17 07:53 98.4 121/68 Intake and Output 03/31/17 03/31/17 04/01/17 15:00 23:00 07:00 Intake Total 100 ml 350 ml 100 ml Output Total 950 ml Balance 100 ml -600 ml 100 ml Exam HEENT exam; supple neck, no JVD. No lymphadenopathy. Midline trachea. No thyromegaly. Patient has a multiple carious teeth. Chest exam; diminished breath sounds bilaterally. S1-S2 audible, no murmurs. Regular rhythm. There is mild scoliosis. Abdomen exam; scaphoid. Nontender. No organomegaly. Bowel sounds audible. Extremity exam; no edema. DELIVER DRIVER exam; no focal motor deficit. Results Result Diagram: 04/01/17 0643 04/01/17 0643 Results 24 hrs Laboratory Tests Test 04/01/17 06:43 White Blood Count 17.1 #H Red Blood Count 4.51 Hemoglobin 11.7 L Hematocrit 38.7 Mean Corpuscular Volume 85.8 Mean Corpuscular Hemoglobin 25.9 L Mean Corpuscular Hemoglobin Concent 30.2 L Red Cell Distribution Width 17.4 H Platelet Count 348 Mean Platelet Volume 10.2 Neutrophils % 88.2 H Lymphocytes % 5.3 L Monocytes % 5.3 Eosinophils % 0.0 Basophils % 0.3 Nucleated Red Blood Cells % 0.0 Neutrophils # 15.1 H Lymphocytes # 0.9 Monocytes # 0.9 Eosinophils # 0.0 Basophils # 0.1 Nucleated Red Blood Cells # 0.0 Sodium Level 146 H Potassium Level 3.7 Chloride Level 105 Carbon Dioxide Level 30 Anion Gap 15 Blood Urea Nitrogen 19 Creatinine 0.74 Glucose Level 103 Calcium Level 8.4 Phosphorus Level 3.1 Magnesium Level 2.2 Medications Medications Current Medications Lorazepam (Ativan) 0.5 mg Q8H PRN PO ANXIETY Last administered on 03/29/17 01 :36; Admin Dose 0.5 MG; Start 03/23/17 at 19:00 Ondansetron HCl (Zofran Inj) 4 mg Q6H PRN IV NAUSEA AND/OR VOMITING; Start 03/28 at 19:00 Acetaminophen (Tylenol Tab) 650 mg Q6H PRN PO PAIN LEVEL 1-3 OR FEVER; Start 03/23/17 at 19:00 Acetaminophen/ Hydrocodone Bitart ([place] (5/325)) 1 tab Q6H PRN PO PAIN LEVEL 4 -6 Last administered on 03/31/17 17:09; Admin Dose 1 TAB; Start 03/23/17 at 19:00 Docusate Sodium (Colace) 100 mg Q12H PRN PO CONSTIPATION Last administered on 03/25/17 08:42; Admin Dose 100 MG; Start 03/23/17 at 19:00 Magnesium Hydroxide (Milk Of Mag) 30 ml DAILY PRN PO CONSTIPATION Last administered on 03/25/17 08:42; Admin Dose 30 ML; Start 03/23/17 at 19:00 Heparin Sodium (Porcine) 5000 unit 5,000 unit Q12 SC Last administered on 04/01 09:33; Admin Dose 5,000 UNIT; Start 03/23/17 at 21:00 Piperacillin Sod/ Tazobactam Sod (Zosyn 2.25gm/ 50ml (Pmx)) 50 ml @ 100 mls/hr Q6 IVPB Last administered on 04/01/17 05:38; Admin Dose 100 MLS/HR; Start at 12:00 Loratadine (Claritin) 10 mg DAILY PO Last administered on 04/01/17 09:17; Admin Dose 10 MG; Start 03/25/17 at 09:00 Fluticasone Propionate (Flonase 0.05% Nasal) 1 spray DAILY NASAL Last administered on 03/31/17 09:37; Admin Dose 1 SPRAY; Start 03/25/17 at 09:00 Megestrol Acetate (Megace Susp) 800 mg DAILY PO Last administered on 09:18; Admin Dose 800 MG; Start 03/26/17 at 09:00 Lansoprazole (Prevacid) 30 mg BID@18 PO Last administered on 04/01/17 05: 38; Admin Dose 30 MG; Start 03/25/17 at 18:00 Silver Sulfadiazine (Thermazene 1% 25 Gm) 1 applic DAILY TOP Last administered on 03/31/17 09:37; Admin Dose 1 APPLIC; Start 03/26/17 at 09:00 Clonazepam (Klonopin) 0.5 mg TID PO Last administered on 04/01/17 09:17; Admin Dose 0.5 MG; Start 03/26/17 at 15:00 Metoprolol Tartrate (Lopressor) 50 mg BID PO Last administered on 04/01/17 09 :18; Admin Dose 50 MG; Start 03/28/17 at 21:00 Methocarbamol (Robaxin) 500 mg BID PO Last administered on 04/01/17 09:18; Admin Dose 500 MG; Start 03/28/17 at 21:00 Lactulose (Enulose) 10 gm DAILY PO Last administered on 04/01/17 09:17; Admin Dose 10 GM; Start 03/28/17 at 10:30 Morphine Sulfate (morphine) 5 mg Q3H PRN PO PAIN Last administered on 05:39; Admin Dose 5 MG; Start 03/30/17 at 10:30 Methylprednisolone Sodium Succinate (Solu-Medrol) 40 mg Q12 IV Last administered on 04/01/17 09:16; Admin Dose 40 MG; Start 03/31/17 at 21:00 Amlodipine Besylate (Norvasc) 5 mg DAILY PO Last administered on 04/01/17 09: 18; Admin Dose 5 MG; Start 04/01/17 at 09:00 NAHID ZAVALA 21, 2017 12:05
--- NOTE | 2017-04-01 15:44 | PDOCDIS ---
Discharge Instructions CONDITION Patient Condition: Stable HOME CARE INSTRUCTIONS: Special Diet: mech soft FOLLOW UP/APPOINTMENTS Follow-up Plan dc to [facility], see reconciliation ZACKARY PRECIADO MD Apr 01, 2017 15:44
--- NOTE | 2017-04-01 17:53 | CONS ---
Date/Time of Note Date/Time of Note DATE: 04/01/17 TIME: 17:52 Assessment/Plan Assessment/Plan Additional Assessment/Plan IMPRESSION: 1. Bronchitis, and bronchiolitis with possible pneumonia. 2. Leukocytosis 3. Dehydration. 4. Weight loss. 5. Abdominal pain and nausea, vomiting. 6. Cachexia. 7. Emphysema. 8. Chronic neck pain. 9. Psychiatric disorder. 10. CEAs height 36.5 #11 leukocytosis Plan Continue PPI Continue Megace Nutritional support either Ensure or Glucerna 1 can 3 times daily. Once he is more stable will proceed with the GI workup Patient p.o. intake has improved. Discussed with the staff nurse she is eating now more than 50%, will continue to observe Continue antibiotic as per ID Consultation Date/Type/Reason Admit Date/Time Mar 23, 2017 at 18:39 Type of Consultation: Pulmonary 24 HR Interval Summary Free Text/Dictation Patient more alert and articulating. She is comfortable Exam/Review of Systems Vital Signs Vitals Vital Signs Date Time Temp Pulse Resp B/P Pulse Ox O2 Delivery O2 Flow Rate FiO2 04/01/17 17:07 82 22 95 Nasal Cannula 6.0 04/01/17 16:09 98.0 125/70 Intake and Output 03/31/17 03/31/17 04/01/17 14:59 22:59 06:59 Intake Total 100 ml 350 ml 100 ml Output Total 950 ml Balance 100 ml -600 ml 100 ml Exam Constitutional: alert, oriented, well developed Psych: nl mood/affect, no complaints Head: atraumatic, normocephalic Eyes: EOMI, PERRL, nl conjunctiva, nl lids, nl sclera ENMT: nl external ears & nose, nl lips & teeth, nl nasal mucosa & septum Neck: non-tender, supple Respiratory: clear to auscultation, normal air movement Cardiovascular: nl pulses, regular rate and rhythm Gastrointestinal: nl liver, spleen, non-tender, soft Musculoskeletal: nl extremities to inspection, nl gait and stance Extremities: normal pulses Neurological: FORM BLOCK MAKER II-XII intact, nl mental status, nl speech, nl strength Skin: nl turgor, No rash or lesions Lymph: nl lymph nodes Results Result Diagram: 04/01/17 0643 04/01/17 0643 Results 24 hrs Laboratory Tests Test 04/01/17 06:43 White Blood Count 17.1 #H Red Blood Count 4.51 Hemoglobin 11.7 L Hematocrit 38.7 Mean Corpuscular Volume 85.8 Mean Corpuscular Hemoglobin 25.9 L Mean Corpuscular Hemoglobin Concent 30.2 L Red Cell Distribution Width 17.4 H Platelet Count 348 Mean Platelet Volume 10.2 Neutrophils % 88.2 H Lymphocytes % 5.3 L Monocytes % 5.3 Eosinophils % 0.0 Basophils % 0.3 Nucleated Red Blood Cells % 0.0 Neutrophils # 15.1 H Lymphocytes # 0.9 Monocytes # 0.9 Eosinophils # 0.0 Basophils # 0.1 Nucleated Red Blood Cells # 0.0 Sodium Level 146 H Potassium Level 3.7 Chloride Level 105 Carbon Dioxide Level 30 Anion Gap 15 Blood Urea Nitrogen 19 Creatinine 0.74 Glucose Level 103 Calcium Level 8.4 Phosphorus Level 3.1 Magnesium Level 2.2 Medications Medications Current Medications Lorazepam (Ativan) 0.5 mg Q8H PRN PO ANXIETY Last administered on 03/29/17 01 :36; Admin Dose 0.5 MG; Start 03/23/17 at 19:00 Ondansetron HCl (Zofran Inj) 4 mg Q6H PRN IV NAUSEA AND/OR VOMITING; Start 03/28 at 19:00 Acetaminophen (Tylenol Tab) 650 mg Q6H PRN PO PAIN LEVEL 1-3 OR FEVER; Start 03/23/17 at 19:00 Acetaminophen/ Hydrocodone Bitart ([place] (5/325)) 1 tab Q6H PRN PO PAIN LEVEL 4 -6 Last administered on 03/31/17 17:09; Admin Dose 1 TAB; Start 03/23/17 at 19:00 Docusate Sodium (Colace) 100 mg Q12H PRN PO CONSTIPATION Last administered on 03/25/17 08:42; Admin Dose 100 MG; Start 03/23/17 at 19:00 Magnesium Hydroxide (Milk Of Mag) 30 ml DAILY PRN PO CONSTIPATION Last administered on 03/25/17 08:42; Admin Dose 30 ML; Start 03/23/17 at 19:00 Heparin Sodium (Porcine) 5000 unit 5,000 unit Q12 SC Last administered on 04/01 09:33; Admin Dose 5,000 UNIT; Start 03/23/17 at 21:00 Piperacillin Sod/ Tazobactam Sod (Zosyn 2.25gm/ 50ml (Pmx)) 50 ml @ 100 mls/hr Q6 IVPB Last administered on 04/01/17 13:27; Admin Dose 100 MLS/HR; Start at 12:00 Loratadine (Claritin) 10 mg DAILY PO Last administered on 04/01/17 09:17; Admin Dose 10 MG; Start 03/25/17 at 09:00 Fluticasone Propionate (Flonase 0.05% Nasal) 1 spray DAILY NASAL Last administered on 03/31/17 09:37; Admin Dose 1 SPRAY; Start 03/25/17 at 09:00 Megestrol Acetate (Megace Susp) 800 mg DAILY PO Last administered on 09:18; Admin Dose 800 MG; Start 03/26/17 at 09:00 Lansoprazole (Prevacid) 30 mg BID@06,18 PO Last administered on 04/01/17 05: 38; Admin Dose 30 MG; Start 03/25/17 at 18:00 Silver Sulfadiazine (Thermazene 1% 25 Gm) 1 applic DAILY TOP Last administered on 03/31/17 09:37; Admin Dose 1 APPLIC; Start 03/26/17 at 09:00 Clonazepam (Klonopin) 0.5 mg TID PO Last administered on 04/01/17 13:16; Admin Dose 0.5 MG; Start 03/26/17 at 15:00 Metoprolol Tartrate (Lopressor) 50 mg BID PO Last administered on 04/01/17 09 :18; Admin Dose 50 MG; Start 03/28/17 at 21:00 Methocarbamol (Robaxin) 500 mg BID PO Last administered on 04/01/17 09:18; Admin Dose 500 MG; Start 03/28/17 at 21:00 Lactulose (Enulose) 10 gm DAILY PO Last administered on 04/01/17 09:17; Admin Dose 10 GM; Start 03/28/17 at 10:30 Morphine Sulfate (morphine) 5 mg Q3H PRN PO PAIN Last administered on 05:39; Admin Dose 5 MG; Start 03/30/17 at 10:30 Methylprednisolone Sodium Succinate (Solu-Medrol) 40 mg Q12 IV Last administered on 04/01/17 09:16; Admin Dose 40 MG; Start 03/31/17 at 21:00 Amlodipine Besylate (Norvasc) 5 mg DAILY PO Last administered on 04/01/17t 09: 18; Admin Dose 5 MG; Start 04/01/17 at 09:00 KAILEY SETHI MD Apr 01, 2017 17:53
--- NOTE | 2017-04-02 06:48 | DS ---
DATE OF ADMISSION: 03/23/2017 DATE OF DISCHARGE: 04/01/2017 REASON FOR ADMISSION: Pneumonia, sepsis, acute renal failure, severe weight loss. 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 She does have a close friend who monitors her. The patient unfortunately has been experiencing increased weight loss. In the past 3 days, she has not ed increased cough and not feeling well. She presented to the ER complaining of abdominal pain, poo r appetite and vomiting. Extensive workup revealed the patient to be septic with a white count of 3 3,000. BUN and creatinine of 69/2.42 suggestive of acute renal failure. Chest x-ray showed bilater al chronic lung changes scarring. A CT scan which was done showed centrilobular emphysema, ad vanced, with bronchitis and possible pneumonia in the inferior right middle lobe. She also noted to be constipated. The patient was started on broad-spectrum antibiotics and admitted for further car e. Patient was hydrated. Ultimately, the blood cultures came back positive for alpha hemolytic str ep, and urine culture as well with strep beta hemolytic group. Initially she was placed on Zosyn an d vancomycin. Once we got those results, I stopped vancomycin, and white count overall, has improve d. She also being placed on steroids because of COPD exacerbation, and was seen by multiple physici ans including Dr. Tima James, the GI specialist, Dr. Wesley Hubbard, the agricultural appraiser. As there wa s concern that the patient likely has malignancy as the patient lost a lot of weight, her CEA level is high, up to 75 on one blood test, Kidney function improved and now at baseline with BUN an d creatinine of 19/0.74. White count went down to 12, but then went up because of the steroids, and now trending back down, but overall the patient needs ongoing care. She is breathing better, but h er appetite is still not great, and she was not stable enough to undergo EGD yet. Plan to transfer to [facility] for further medical management, antibiotics for her sepsis, bacteremi a. I tried to avoid sedatives, but patient has chronic back pain. The patient will be discharged with the following medications: 1. Norvasc 5 mg daily. 2. Solu-Medrol 40 mg IV q. 12. 3. DuoNeb every 4 hours. 4. Morphine sulfate tablets at 5 mg q. 3 p.r.n. 5. Metoprolol 50 mg b.i.d. 6. Robaxin 500 b.i.d. 7. Lactulose 10 g daily. 8. Klonopin 0.5 t.i.d. 9. Megace 800 daily. 10. b.i.d. 11. Claritin 10 mg daily. 12. Flonase daily. 13. DuoNeb every 4 p.r.n. 14. Zosyn 3.375 IV q. 6. 15. Heparin 5000 q. 12. 16. Ativan p.r.n. 17. Zofran. p.r.n. 18. Tylenol p.r.n. 19. Temperance p.r.n. 20. Milk of magnesia p.r.n. FINAL DIAGNOSES: 1. Sepsis. 2. Urinary tract infection, organism streptococcus. 3. Bacteremia, organism is alpha hemolytic streptococcus. 4. Chronic obstructive pulmonary disease exacerbation. 5. Pneumonia. 6. Acute renal failure. 7. Severe malnutrition. 8. Dysphagia. 9. Elevated CEA, concerning for malignancy. 10. Hypertension. 11. Chronic pain. 12. Low back pain, spinal disk disease. 13. Hypernatremia, also hyponatremia at point. 14. Peripheral vascular disease. Patient seen by the vascular surgeon. Lower extremity venous ult rasound showed abnormal examination demonstrating dampened waveforms in both lower extremities consi stent with inflow disease. The patient is not a candidate for any aggressive procedures or revascul arization. 15. Allergic rhinitis. Overall, prognosis is not very good. The patient is FULL CODE. Case discussed with her friend at bedside who helps with her care. The patient will be transferred for further care to [facility]. Patient was seen also by the dietitian, tube feedings. The patient did refuse NG tube. May continue G-tube feeding. Overall, prognosis is poor as I am concerned about malignancy, weight loss and her severe emphysema. DISPOSITION: Patient was discharged stable but guarded condition to [facility] wit h oxygen supplements. Dictated By: ZACKARY ANGELA/YOJANA Conf#: [id number] DID#: [id number]
== END 2017-04-01 20:00 | DRG 871 ==
LOC: E/R 12:33 → MS4 18:39
PROVIDERS: ADMIT Internal Medicine; ATTEND Internal Medicine
DX: A41.2 Sepsis due to unspecified staphylococcus (principal); J18.9 Pneumonia, unspecified organism; E41 Nutritional marasmus; N17.9 Acute kidney failure, unspecified; E43 Unspecified severe protein-calorie malnutrition; R64 Cachexia; R13.10 Dysphagia, unspecified; J44.0 Chronic obstructive pulmonary disease with (acute) lower respiratory infection; J44.1 Chronic obstructive pulmonary disease with (acute) exacerbation; Z68.1 Body mass index [BMI] 19.9 or less, adult; N39.0 Urinary tract infection, site not specified; M41.9 Scoliosis, unspecified; E86.0 Dehydration; G89.4 Chronic pain syndrome; M06.9 Rheumatoid arthritis, unspecified; M54.2 Cervicalgia; K21.9 Gastro-esophageal reflux disease without esophagitis; J40 Bronchitis, not specified as acute or chronic; F17.200 Nicotine dependence, unspecified, uncomplicated; F99 Mental disorder, not otherwise specified; D50.0 Iron deficiency anemia secondary to blood loss (chronic); R65.20 Severe sepsis without septic shock; I73.9 Peripheral vascular disease, unspecified; Z88.2 Allergy status to sulfonamides; Z88.8 Allergy status to other drugs, medicaments and biological substances
CPT/HCPCS: 36415; 36600; 71010; 74176; 80048; 80053; 80061; 80202; 81001; 81003; 82378; 82565; 82803; 83036; 83605; 83735; 84100; 84443; 84484; 84520; 85025; 85610; 85730; 86301; 87040; 87081; 87086; 90686; 93005; 93922; 94640; 94664; 96361; 96365; 96375; J1170; J1644; J2270; J2405; J2543; J2920; J2930; J3370; J3475; J7030; J7042; J7050

== ENCOUNTER 2017-04-11 05:53 | Inpatient (IN) | END 2017-05-13 22:46 | DRG 4 ==

== ENCOUNTER 2017-05-24 19:48 | Inpatient (IN) | END 2017-05-29 23:43 | disposition EXP | DRG 870 ==